=== PATIENT | male | born 1965 | race Caucasian/White ===

== ENCOUNTER 2023-03-13 02:29 | Emergency (ER) | payer OTHER, SELFPAY ==
[2023-03-13 02:37] VITALS: BP 105/76; BMI 42.5
[2023-03-13 02:45] VITALS: BP 105/76
[2023-03-13 02:48] LABS: % Basophils 0.3 % (0-2); % Eosinophils 2.5 % (0-6); % Immature Granulocytes 0.2 % (0-0.5); % Lymphocytes 23.8 % (20.5-51.1); % Monocytes 8.3 % (1.7-9.3); % Neutrophils 64.9 % (42.2-75.2); Absolute Eosinophils 0.2 10^3/uL (0-0.7); Absolute Lymphocytes 2.1 10^3/uL (1.2-3.4); Absolute Monocytes 0.7 10^3/uL (0.1-0.6); Absolute Neutrophils 5.8 10^3/uL (1.4-6.5); Hematocrit 44.7 % (39.0-52.0); Hemoglobin 15.1 g/dL (13.0-18.0); Mean Corp Hgb Conc. 33.8 g/dL (33.0-37.0); Mean Corpuscular Hgb 28.2 pg (27.0-31.0); Mean Corpuscular Volume 83.4 fL (80.0-94.0); Mean Platelet Volume 9.4 fL (7.4-10.4); Nucleated Red Blood Cells % 0 % (-); Platelet Count 244 10^3/uL (130-400); Red Blood Cell Count 5.36 10^6/uL (4.70-6.10); Red Cell Dist. Width 13.8 % (11.5-14.5); White Blood Cell Count 8.9 10^3/uL (4.8-10.8)
[2023-03-13 03:00] VITALS: BP 116/67
[2023-03-13 03:12] LABS: ALT (SGPT) 24 U/L (0-50); AST (SGOT) 26 U/L (17-59); Albumin 4.2 g/dl (3.5-5.0); Alkaline Phosphatase 88 U/L (38-126); Blood Urea Nitrogen 19 mg/dl (9-20); Calcium 9.3 mg/dl (8.4-10.2); Carbon Dioxide 29 mmol/L (22-30); Chloride 102 mmol/L (98-107); Estimated Creatinine Clearance 125 ml/min; Glucose 109 mg/dl (70-99); Potassium 4.2 mmol/L (3.5-5.1); Sodium 136 mmol/L (135-145); Total Bilirubin 0.6 mg/dl (0.2-1.3); Total Protein 7.5 g/dl (6.3-8.2); eGFR > 60.00
[2023-03-13 03:13] LABS: NT-proBNP 398 pg/ml; Troponin I < 0.012 ng/ml
[2023-03-13 04:02] LABS: Lipase 90 U/L (23-300)
[2023-03-13 04:05] VITALS: BP 130/80
--- NOTE | 2023-03-13 04:12 | ED.GENMED ---
History of Present Illness
<MARIBELL Yo - Last Filed: 03/13/23 06:29>
General
Chief Complaint: Chest Pain
Source: patient
Exam Limitations: none
Time Seen by Provider: 03/13/23 03:01
Nursing documentation reviewed up to this point in time: agreed with
Travel History
Have you had any contact with someone who has COVID-19?: No
Do you have any symptoms of coronavirus? Fever > 100 degrees, chills, cough, shortness of breath, sore throat, loss of taste or smell, muscle aches, or headache?: No
History of Present Illness
History of Present Illness:
Pt is a 57 yo male with PMH of GERD, T2DM, chronic afib, HIV who presents today with epigastric pain. Pt states that he was laying on his stomach watching TV at 1:30am when he suddenly developed 3-4/10 non-radiating pressure-like epigastric pain.
Pain did not change with position change and gets slightly worse with deep breaths. Pt states that this feels different than his GERD. Pt states that he has been 'very gassy recently' following meals, especially following restaurant meals. He also
has had diarrhea for about 1 week. Denies chest pain, SOB, leg pain, other abdominal pain, constipation, fever.
Past History
<MARIBELL Yo - Last Filed: 03/13/23 06:29>
Past History
ED Past Medical History: Arrthythmia (Atrial fib), GERD, HTN, Hypercholesterolemia, NIDDM, Psychiatric (anxiety,) and Other (Chronic back problems, HIV, kidney stones, hepatitis B, PNA,)
ED Past Surgical History: None
Social History
Tobacco: Non-smoker
Alcohol: Occasional
Drug: None
Personal: Single
Living: with roommate
Employment: Not employed
Family History
Family History: Other (Coronary artery disease, CVA, cancer)
Review of Systems
<MARIBELL Yo - Last Filed: 03/13/23 06:29>
Review of Systems
Allergies reviewed?: Yes
All Other Systems: ROS reviewed and negative except as documented in HPI and ROS
Phy Exam
<MARIBELL Yo - Last Filed: 03/13/23 06:29>
General Physical Exam
General Presentation: well appearing and no apparent distress
General Skin: warm and dry
General Mental: alert
General Hydration: appears well hydrated
ENT Exam
ENT Exam: pharynx normal, neck supple, normocephalic and swallowing well
Eye Exam
Eye Exam: PERRL and conjunctiva normal
Cardiovascular Exam
Cardiovascular Exam: no edema, normal peripheral pulses, irregularly irregular and systolic murmur
Pulmonary Exam
Pulmonary Exam: lungs clear, no respiratory distress, no rales, no crackles, no rhonchi, no wheezing and no cough
Gastrointestinal Exam
Gastrointestinal Exam: normal bowel sounds, non tender (no epigastric tenderness with palpation), soft and non distended
Neurological Exam
Neurological Exam: alert, oriented x3 and speech normal
Skin Exam
Skin Exam: normal color and warm/dry
Psychiatric Exam
Psychiatric Exam: normal mood/affect
Scores
<MARIBELL Yo - Last Filed: 03/13/23 06:29>
Heart Score for Chest Pain Patients
STEMI patient?: No
History: Slightly or Non-Suspicious
ECG: Normal
Age: >45 - <65 years
Risk Factors: >/= 3 Risk Factors or History of CAD
Troponin: </= Normal Limit
Heart Score for Chest Pain Patients: 3
Heart Score Risk: 2.5% MACE over next 6 weeks
Course
<MARIBELL Yo - Last Filed: 03/13/23 06:29>
Orders/Labs/Results
Orders:
Orders
03/13/23 02:35
Electrocardiogram (*1) Urgent
Reason for Study: Other
Other Reason for Exam: Respiratory Distress
Cardiac Monitoring- Treatment ONCE
EKG- Treatment ONCE
IV Insert/Care/Rem.- Treatment PRN
CR Chest - 2 Views Urgent
Comment:
Reason For Exam: respiratory distress
O2 Therapy [RESP] Urgent
Titrate/Wean O2 to maintain O2 sat greater than (%): 93
Special Instructions: TO MAINTAIN CONTINUOUS O2 SATS >/= 93%
Pulse Ox/cont/shift [RESP] Urgent
Quantity: 1
Special Instructions: continuous pulse ox
03/13/23 02:41
Complete Blood Count/With Diff Urgent
Comprehensive Metabolic Panel Urgent
Lipase Urgent
Comment: ADD ON
NT-proBNP Urgent
Troponin I Urgent
03/13/23 03:28
Add On- LAB Urgent
Tests Added?: lipase
03/13/23 04:34
Mag Hydrox/Al Hydrox/Simeth [Maalox] 30 ml Phenobarb/Hyoscy/Atropine/Scop [] 10 ml Viscous Lidocaine 2% [Xylocaine Viscous Cup] 10 ml PO NOW
03/13/23 04:37
Mag Hydrox/Al Hydrox/Simeth [Maalox] 30 ml .ROUTE .STK-MED ONE
Phenobarb/Hyoscy/Atropine/Scop [] 10 ml .ROUTE .STK-MED ONE
Viscous Lidocaine 2% [Xylocaine Viscous Cup] 15 ml .ROUTE .STK-MED ONE
03/13/23 04:42
Acetaminophen [Tylenol] 1,000 mg PO NOW STA
03/13/23 04:43
Troponin I Urgent
Acetaminophen [Tylenol] 1,000 mg .ROUTE .STK-MED ONE
Abnormal Lab Results
03/13/23
02:41
Absolute Monos (auto) 0.7 H 10^3/uL
(0.1-0.6)
Glucose 109 H mg/dl
(70-99)
03/13/23 02:41
03/13/23 02:41
Vital Signs
Initial and Last Documented VS:
Initial Vital Signs
Temp Pulse Resp BP Pulse Ox
98.1 F 85 20 105/76 95
03/13/23 02:37 03/13/23 02:37 03/13/23 02:37 03/13/23 02:37 03/13/23 02:37
Last Documented Vital Signs
Temp Pulse Resp BP Pulse Ox
98.1 F 87 20 109/74 97
03/13/23 02:37 03/13/23 05:45 03/13/23 05:45 03/13/23 05:00 03/13/23 05:45
<Francine Swan, DO - Last Filed: 03/13/23 05:58>
Orders/Labs/Results
Orders:
Orders
03/13/23 02:35
Electrocardiogram (*1) Urgent
Reason for Study: Other
Other Reason for Exam: Respiratory Distress
Cardiac Monitoring- Treatment ONCE
EKG- Treatment ONCE
IV Insert/Care/Rem.- Treatment PRN
CR Chest - 2 Views Urgent
Comment:
Reason For Exam: respiratory distress
O2 Therapy [RESP] Urgent
Titrate/Wean O2 to maintain O2 sat greater than (%): 93
Special Instructions: TO MAINTAIN CONTINUOUS O2 SATS >/= 93%
Pulse Ox/cont/shift [RESP] Urgent
Quantity: 1
Special Instructions: continuous pulse ox
03/13/23 02:41
Complete Blood Count/With Diff Urgent
Comprehensive Metabolic Panel Urgent
Lipase Urgent
Comment: ADD ON
NT-proBNP Urgent
Troponin I Urgent
03/13/23 03:28
Add On- LAB Urgent
Tests Added?: lipase
03/13/23 04:34
Mag Hydrox/Al Hydrox/Simeth [Maalox] 30 ml Phenobarb/Hyoscy/Atropine/Scop [] 10 ml Viscous Lidocaine 2% [Xylocaine Viscous Cup] 10 ml PO NOW
03/13/23 04:37
Mag Hydrox/Al Hydrox/Simeth [Maalox] 30 ml .ROUTE .STK-MED ONE
Phenobarb/Hyoscy/Atropine/Scop [] 10 ml .ROUTE .STK-MED ONE
Viscous Lidocaine 2% [Xylocaine Viscous Cup] 15 ml .ROUTE .STK-MED ONE
03/13/23 04:42
Acetaminophen [Tylenol] 1,000 mg PO NOW STA
03/13/23 04:43
Troponin I Urgent
Acetaminophen [Tylenol] 1,000 mg .ROUTE .STK-MED ONE
Abnormal Lab Results
03/13/23
02:41
Absolute Monos (auto) 0.7 H 10^3/uL
(0.1-0.6)
Glucose 109 H mg/dl
(70-99)
03/13/23 02:41
03/13/23 02:41
Vital Signs
Initial and Last Documented VS:
Initial Vital Signs
Temp Pulse Resp BP Pulse Ox
98.1 F 85 20 105/76 95
03/13/23 02:37 03/13/23 02:37 03/13/23 02:37 03/13/23 02:37 03/13/23 02:37
Last Documented Vital Signs
Temp Pulse Resp BP Pulse Ox
98.1 F 87 20 109/74 97
03/13/23 02:37 03/13/23 05:45 03/13/23 05:45 03/13/23 05:00 03/13/23 05:45
<MARIBELL Yo - Last Filed: 03/13/23 06:29>
*Critical Care Note
Total Time (30-74mins, 75-104mins- exclusive of procedures): Not Applicable
ED Attending Note
<MARIBELL Yo - Last Filed: 03/13/23 06:29>
-
Portions of this chart may have been created with voice recognition software.� Occasional wrong word or��sound alike� substitutions may have occurred due to the inherent limitations of voice recognition software.
<Francine Swan DO - Last Filed: 03/13/23 05:58>
ED Attending Note
Patient seen and examined by attending physician: Yes
I performed the substantive portion of visit, reviewed & personally made and approve the management plan that is documented in note by myself or GURWIDNER.: Yes
I performed a history and physical exam of patient and discussed management with resident, I reviewed resident's note and agree with documented findings and plan of care.: Yes
ED Attending Note:
This is a 57-year-old morbidly obese gentleman who has history of chronic A-fib, maintained on Eliquis, history of hypertension, insulin requiring diabetes, hyperlipidemia, chronic low back pain, HIV, GERD who presents with epigastric abdominal pain
that began around 130 this morning while lying prone, watching TV. Epigastric pain seemed mildly worse with deep inspiration but no other associated symptoms. No radiation of the pain, no nausea nor vomiting, no back pain no neck pain, no
dizziness nor lightheadedness, no palpitations, no diaphoresis. He has had a few loose stools over the past few days which is not unusual for him. He denies hematochezia. He has not had a fever nor chills. No dysuria no urgency or hematuria. He
has not taken anything for discomfort. No prior history of coronary artery disease. No recent change in medication.
57-year-old obese gentleman appears his stated age, awake and alert, pleasant, quite chatty and overall appears in no acute distress.
HEENT: Face mask in place. Anicteric.
Neck is supple, nontender, no adenopathy nor JVD.
Heart is irregularly irregular at a rate of 80-90. No murmur no rub.
Lungs are clear to auscultation, respirations are easy and nonlabored.
Abdomen is obese, soft, nondistended, no appreciable tenderness. No rebound or guarding. No CVA tenderness. Normoactive bowel sounds. No palpable masses.
Extremities without clubbing or cyanosis nor edema. Peripheral pulses are full and equal. Nontender.
Skin is warm and dry, normal color. Good turgor. No rash.
Neuro: Awake alert and oriented x 3. No focal neurodeficits. Gait is steady.
Concern for acute gastritis, GERD, other consideration is ACS, musculoskeletal pain, pancreatitis, biliary colic.
Overall pain appears mild, improving.
EKG shows atrial fibrillation with controlled ventricular response. No acute ST-T wave abnormalities, similar and unchanged from previous EKG July 2021.
Will check labs including troponin, lipase.
Will consider GI cocktail if labs are unremarkable.
03/13/2023 0448 AM
Thus far labs are unremarkable. LFTs, lipase all within normal limits. Troponin is negative. Random glucose 109. CBC is unremarkable. GI cocktail ordered but patient is currently pain-free and comfortable.
He does note very mild headache and requested dose of Tylenol which will be given now.
Will recheck troponin. 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
Discharge Plan
Departure
Patient Disposition: Home (Routine Discharge)
Date of Disposition: 03/13/23
Time of Disposition: 05:57
Patient with high blood pressure during this ER visit?: No
Condition: Good
Discharge Problem:
Abdominal pain, acute, epigastric
Instructions: Acid Reflux and GERD in Adults (DC)
Prescriptions:
No Action
amlodipine-olmesartan [Tanna] 1 TAB tablet
1 tab PO DAILY
metformin 500 MG tablet
1,000 mg PO BID
dexlansoprazole [Dexilant] 60 MG capsule,biphase delayed releas
60 mg PO DAILY
lovastatin 40 MG tablet
40 mg PO DAILY
Patient Comments:
takes it as needed
fenofibrate micronized 130 MG capsule
134 mg PO DAILY PRN (Reason: per pt )
utolgqd-hpx-eflws-tenof alafen [Genvoya] 1 TABLET tablet
1 tab PO DAILY
insulin aspart U-100 [Novolog FlexPen U-100 Insulin] 300 UNITS/3 ML insulin pen
27 units SC AC
insulin detemir U-100 [Levemir FlexTouch U100 Insulin] 300 UNIT/3 ML insulin pen
50 unit SC HS
Patient Comments:
takes it @ b/n [id number] as pt awakes most of the night
metoprolol tartrate 50 MG tablet
100 mg PO BID Qty: 120 0RF
aspirin [Aspir-Low] 81 MG tablet,delayed release (DR/EC)
81 mg PO DAILY Qty: 30 0RF
lorazepam 0.5 MG tablet
0.5 mg PO Q4HPRN PRN (Reason: anxiety) Qty: 10 0RF
gabapentin 100 MG capsule
100 mg PO QID
Referrals:
Devin Cronin MD [Active] - Call in 1-3 days for appt
Roberto Sanders DO [Family Provider] - Call in 1-3 days for appt
Interventions
Interventions:
*Risk Screen - Suicide Last Done: 03/13/23 02:37
*General Assessment Last Done: 03/13/23 02:37
*Neglect/Abuse Screening Last Done: 03/13/23 02:37
*ED COVID-19 Vaccine History Last Done: 03/13/23 02:37
*Nursing Disposition Last Done: 03/13/23 06:15
ED- Cardiac Assessment Last Done: 03/13/23 02:44
Discharge Date and Time
Discharge Date/Time: 03/13/23 06:15
[2023-03-13] MEDS: TYLENOL 1000 MG PO (04:44)
[2023-03-13 05:00] VITALS: BP 109/74
[2023-03-13 05:19] LABS: Troponin I < 0.012 ng/ml
== END 2023-03-13 06:15 | disposition home or self-care (01) ==
LOC: EMR 02:29
PROVIDERS: EMERGENCY PHYSICIAN Emergency Medicine; FAMILY PHYSICIAN Family Medicine
DX: R10.13 Epigastric pain (principal); I10 Essential (primary) hypertension; I48.20 Chronic atrial fibrillation, unspecified; E11.9 Type 2 diabetes mellitus without complications; E78.00 Pure hypercholesterolemia, unspecified; Z21 Asymptomatic human immunodeficiency virus [HIV] infection status; K21.9 Gastro-esophageal reflux disease without esophagitis
CPT/HCPCS: 99285; 71046; 80053; 83690; 83880; 84484; 85025; 93005

== ENCOUNTER → 2023-05-18 12:22 | Outpatient (REF) | payer OTHER, SELFPAY | LOC: RCS 12:22 | PROVIDERS: ATTENDING PHYSICIAN Internal Medicine; FAMILY PHYSICIAN Family Medicine | DX: I48.21 Permanent atrial fibrillation (principal); I35.0 Nonrheumatic aortic (valve) stenosis; I42.8 Other cardiomyopathies | CPT/HCPCS: 93306 ==

== ENCOUNTER → 2023-07-31 16:55 | Outpatient (REF) | payer OTHER, SELFPAY | LOC: RAD 16:55 | PROVIDERS: ATTENDING PHYSICIAN Physician Assistant Medical | DX: M54.2 Cervicalgia (principal) | CPT/HCPCS: 72052 ==

== ENCOUNTER → 2024-01-01 12:45 | Outpatient (REF) | payer OTHER, SELFPAY | LOC: RAD 12:45 | PROVIDERS: ATTENDING PHYSICIAN Specialist; FAMILY PHYSICIAN Family Medicine | DX: B18.1 Chronic viral hepatitis B without delta-agent (principal) | CPT/HCPCS: 76700 ==

== ENCOUNTER 2024-01-29 06:27 | Day surgery (SDC) | payer OTHER, SELFPAY ==
[2024-01-29] VITALS (12 sets, daily range): BP systolic 120–134; BP diastolic 79–91; BMI 44.2
[2024-01-29] MEDS: LOW STRENGTH ASPIRIN 81 MG PO (08:14)
[2024-01-29 09:08] LABS: Glucose - Point of Care 100 mg/dl (70-99)
--- NOTE | 2024-01-29 10:59 | ITS.CL.CATH ---
Insurance Verification Representative - Catheterization
Cardiac Catheterization
Procedure Report:
CARDIAC CATHETERIZATION REPORT
Date of Procedure: 01/29/2024
Referring: Devin Cronin M.D., Ph.D.
Indication: Atypical chest discomfort, known aortic valve stenosis.
PROCEDURE:
1. Right heart catheterization.
2. Left heart catheterization.
3. Coronary angiography.
4. Aortic valve interrogation.
5. Mitral valve interrogation.
ACCESS:
6 [place] right radial artery.
5 [place] right antecubital vein using a modified Seldinger technique under ultrasound guidance.
CATHETERS:
1. 5 [place] balloon wedge.
2. 5 [place] JL 4.
3. 5 [place] JR4.
4. 6 [place] dual-lumen pigtail.
HEMODYNAMIC DATA
Weight (kg): 147.6
AO (s/d/x mmHg): 97/69/80
LV (s/x mmHg): 173/24
PCWP (a/v/x mmHg): 26/33/24
PA (s/d/x mmHg): 43/24/30
RV (s/x mmHg): 43/16
RA (a/v/x mmHg): 18//17
SVC SvO2 (%): 73.1
PA SvO2 (%): 71.6
SaO2 (%): 93.2
Hbg (g/dL): 14.1
CO (L/min): 7.68
CI (L/min/m2): 2.93
TPG (mmHg): 6
PVR (Siddiqui Units): 0.78
SVR (dynes*seconds*cm^-5): 656
AVO2 Diff (Volume %): 4.14
AV gradient (x, mmHg): 58.3
AV area (cm2): 0.90
MV gradient (x, mmHg): 1.7
MV area (cm2): >5.0
LEFT VENTRICULOGRAPHY: Not performed.
CORONARY ANGIOGRAPHY
Dominance: Right.
Left Main: Normal size, bifurcating vessel. There is no coronary artery disease.
LAD: Normal size vessel giving rise to 2 diagonals. The first diagonal arises very high off of the LAD. There is no coronary artery disease.
Ramus: Not performed.
Circumflex: Large size, nondominant vessel giving rise to 2 obtuse marginals then terminating as a third obtuse marginal. There is no coronary artery disease.
RCA: Normal size, dominant vessel. There is no coronary artery disease.
INTERVENTIONS
None.
Closure Device: Vascular band for the right radial artery, manual pressure for the right antecubital vein.
Radiation dose (mGy): 1017.81
DAP (cm2.Gy): 81.7884
Fluoroscopy time (minutes): 9.5
Sedation time (minutes): 64
CONCLUSIONS:
1. Right dominant circulation with no significant coronary artery disease.
2. Severe to critical aortic valve stenosis (mean gradient = 50.3 mmHg, MARIYA = 0.90 cm�).
3. Severely elevated filling pressures (LVEDP = 24 mmHg, PCWP = 24 mmHg at 147.6 kg).
4. Mild, postcapillary pulmonary hypertension (PA = 43/24/30 mmHg, PCWP = 24 mmHg, cardiac output = 7.68 L/min, PVR = 0.78 Siddiqui units).
RECOMMENDATIONS:
1. Expectant management after cardiac catheterization via right radial/antecubital approach.
2. Limited weight bearing on the right wrist for one week.
3. Consultation with CT surgery regarding optimal valve replacement strategy.
4. Start furosemide 40 mg p.o. daily. BMP in 1 week to monitor renal function and potassium levels.
5. Repeat transthoracic echo.
6. Stable for outpatient follow-up.
Copy to: Devin Cronin M.D., Ph.D., Roberto Sanders, D.O.
Afshin Forman DO, FACC, FACP
[2024-01-29] MEDS: NSS 663 IV (11:36)
[2024-01-29] MEDS: TOPROL XL 100 MG PO (11:40)
== END 2024-01-29 13:33 | disposition home or self-care (01) ==
LOC: CATH 06:27
PROVIDERS: ATTENDING PHYSICIAN Internal Medicine Cardiovascular Disease; CONSULT PHYSICIAN Thoracic Surgery (Cardiothoracic Vascular Surgery); FAMILY PHYSICIAN Family Medicine; OTHER PHYSICIAN Internal Medicine
DX: I35.0 Nonrheumatic aortic (valve) stenosis (principal); R07.89 Other chest pain; I27.29 Other secondary pulmonary hypertension; Z79.01 Long term (current) use of anticoagulants; Z79.899 Other long term (current) drug therapy; Z79.84 Long term (current) use of oral hypoglycemic drugs; Z79.4 Long term (current) use of insulin
CPT/HCPCS: 82962; 93460; C1769; C1894; Q9967

== ENCOUNTER → 2024-02-26 14:31 | Outpatient (REF) | payer OTHER, SELFPAY | LOC: HWRCS 14:31 | PROVIDERS: ATTENDING PHYSICIAN Thoracic Surgery (Cardiothoracic Vascular Surgery) | DX: Z01.818 Encounter for other preprocedural examination (principal) | CPT/HCPCS: 93306 ==

== ENCOUNTER 2024-05-26 05:21 | Emergency (ER) | payer OTHER, SELFPAY ==
[2024-05-26 05:23] VITALS: BP 160/84
--- NOTE | 2024-05-26 06:41 | ED.GENMED ---
History of Present Illness
General
Chief Complaint: Blood Pressure Problem
Source: patient
Exam Limitations: none
Time Seen by Provider: 05/26/24 06:24
History of Present Illness
History of Present Illness:
58yoM with a history of hypertension, hyperlipidemia, type 2 diabetes, atrial fibrillation, and HIV presenting for concern for low blood pressure. Patient takes amlodipine-olmesartan combination pill daily for his blood pressure, he is unsure of
the dose. Patient typically takes his medications at 10 AM in the morning. He took yesterday's dose 12 hours early and took at 10 PM the night prior. He called his PCPs office and he was told to skip the rest of the day and resume his medications
this morning. Patient woke up this morning and 'felt funny.' He took his morning dose of the amlodipine-olmesartan around 4:45am. He decided to check his blood pressure which was 115/57. He became concerned that his blood pressure was too low so
decided to come to the ED. He is currently asymptomatic at this time.
Past History
Past History
ED Past Medical History: Arrthythmia (Atrial fib), GERD, HTN, Hypercholesterolemia, NIDDM, Psychiatric (anxiety,) and Other (Chronic back problems, HIV, kidney stones, hepatitis B, PNA,)
ED Past Surgical History: None
Social History
Tobacco: Non-smoker
Alcohol: Occasional
Drug: None
Personal: Single
Living: with roommate
Employment: Not employed
Family History
Family History: Other (Coronary artery disease, CVA, cancer)
Phy Exam
General Physical Exam
General Presentation: well appearing and no apparent distress
General age: appears stated age
General Skin: warm and dry
General Habitus: normal
General Mental: alert
ENT Exam
ENT Exam: normocephalic
Pulmonary Exam
Pulmonary Exam: no respiratory distress
Neurological Exam
Neurological Exam: alert
[place] Coma Scale
Eye Opening: Spontaneous
Verbal Response: Oriented
Motor Response: Obeys Commands
GCS Total Score: 15
Skin Exam
Skin Exam: normal color and warm/dry
Psychiatric Exam
Psychiatric Exam: normal mood/affect
Course
Vital Signs
Blood pressure: 116/76
Initial and Last Documented VS:
Initial Vital Signs
Temp Pulse Resp BP Pulse Ox
97.5 F 78 18 160/84 98
05/26/24 05:23 05/26/24 05:23 05/26/24 05:23 05/26/24 05:23 05/26/24 05:23
Last Documented Vital Signs
Temp Pulse Resp BP Pulse Ox
97.5 F 78 18 116/76 98
05/26/24 05:23 05/26/24 05:23 05/26/24 05:23 05/26/24 06:50 05/26/24 05:23
MDM/Problems Addressed
Differential Diagnosis Includes:
58yoM here with concern for low blood pressure. Took yesterday's dose of amlodipine-olmesartan 12 hours early. Took dose this morning at 4:45am instead of 10am. Alpha 'funny' and BP was 115/54 at home. Currently asymptomatic. BP 160/84 in triage.
Repeat BP 116/76 during initial exam. Patient is well appearing in no distress and is mentating appropriately.
No indication for workup at this time. Patient provided with reassurance. He was advised to resume his blood pressure medications tomorrow as prescribed by his PCP. Advised f/u with PCP and ED return precautions reviewed. Patient in agreement with
plan and was discharged in stable condition.
*Critical Care Note
Total Time (30-74mins, 75-104mins- exclusive of procedures): Not Applicable
ED Attending Note
-
Portions of this chart may have been created with voice recognition software.� Occasional wrong word or��sound alike� substitutions may have occurred due to the inherent limitations of voice recognition software.
Discharge Plan
Departure
Patient Disposition: Home (Routine Discharge)
Date of Disposition: 05/26/24
Time of Disposition: 06:50
Patient with high blood pressure during this ER visit?: No
Discharge Problem:
Blood pressure check
Instructions: High Blood Pressure (DC)
Prescriptions:
No Action
amlodipine-olmesartan [Tanna] 1 TAB tablet
1 tab PO DAILY
dexlansoprazole [Dexilant] 60 MG capsule,biphase delayed releas
60 mg PO PRN PRN (Reason: heartburn)
insulin aspart U-100 [Novolog FlexPen U-100 Insulin] 300 UNITS/3 ML insulin pen
22 units SC AC
lorazepam 0.5 MG tablet
0.5 mg PO Q4HPRN PRN (Reason: anxiety) Qty: 10 0RF
metoprolol succinate 100 mg Tablet Extended Release 24 Hr
100 mg PO DAILY
insulin glargine [Lantus Solostar U-100 Insulin] 100 unit/mL (3 mL) Insulin Pen
54 unit SC DAILY
Eliquis 5 mg Tablet
5 mg PO BID
Biktarvy 50-200-25 mg Tablet
1 tab PO DAILY
Nexlizet 180-10 mg Tablet
1 tab PO DAILY
Mounjaro 12.5 mg/0.5 mL Pen Injector
12.5 mg SC QWEEK
doxycycline hyclate 100 mg Capsule
200 mg PO PRN PRN (Reason: unprotected sexual intercourse)
lidocaine [Lidocaine Pain Relief] 4 % Adhesive Patch,Medicated
1 patch TOPICAL BID PRN (Reason: pain)
acetaminophen [Tylenol Arthritis Pain] 650 mg Tablet Extended Release
650 mg PO Q8H PRN (Reason: pain)
oxycodone-acetaminophen [Percocet] 5-325 mg Tablet
1 tab PO PRN PRN (Reason: pain)
ascorbic acid (vitamin C) [Vitamin C] 500 mg Tablet
500 mg PO DAILY
vitamin A 10,000 unit Tablet
10,000 unit PO DAILY
ergocalciferol (vitamin D2) 1,000 unit Capsule
1,000 unit PO DAILY
Referrals:
UNKNOWN - PT DOES,NOT KNOW [Unknown Provider] -
Activity Restrictions/Additional Instructions:
Resume your home blood pressure medications tomorrow as prescribed by your family doctor.
Please schedule a follow-up with your PCP for a blood pressure recheck. Return to the ER with any new or worsening symptoms.
Interventions
Interventions:
*Risk Screen - Suicide Last Done: 05/26/24 05:23
*Neglect/Abuse Screening Last Done: 05/26/24 05:23
Discharge Date and Time
Print Language: BELARUSIAN
[2024-05-26 07:17] VITALS: BMI 42.4
[2024-05-26 07:18] VITALS: BP 124/92
== END 2024-05-26 07:25 | disposition home or self-care (01) ==
LOC: EMR 05:21
PROVIDERS: EMERGENCY PHYSICIAN Emergency Medicine; FAMILY PHYSICIAN Family Medicine
DX: I10 Essential (primary) hypertension (principal); E78.00 Pure hypercholesterolemia, unspecified; E11.9 Type 2 diabetes mellitus without complications; I48.91 Unspecified atrial fibrillation; F41.9 Anxiety disorder, unspecified; Z21 Asymptomatic human immunodeficiency virus [HIV] infection status; K21.9 Gastro-esophageal reflux disease without esophagitis; Z87.442 Personal history of urinary calculi; Z79.899 Other long term (current) drug therapy; Z88.2 Allergy status to sulfonamides
CPT/HCPCS: 99282

== ENCOUNTER → 2024-06-06 12:17 | Outpatient (REF) | payer OTHER, SELFPAY | LOC: HWRAD 12:17 | PROVIDERS: ATTENDING PHYSICIAN Nurse Practitioner Gerontology; FAMILY PHYSICIAN Family Medicine | DX: R22.1 Localized swelling, mass and lump, neck (principal) | CPT/HCPCS: 76536 ==

== ENCOUNTER → 2024-07-03 09:28 | Outpatient (REF) | payer OTHER, SELFPAY | LOC: RAD 09:28 | PROVIDERS: ATTENDING PHYSICIAN Thoracic Surgery (Cardiothoracic Vascular Surgery); FAMILY PHYSICIAN Family Medicine | DX: I35.0 Nonrheumatic aortic (valve) stenosis (principal) | CPT/HCPCS: 74174; 75572; Q9967 ==

== ENCOUNTER 2024-08-22 07:32 | Inpatient (IN) | payer OTHER, SELFPAY ==
[2024-08-12 12:32] VITALS: BMI 42.8
[2024-08-12 13:11] LABS: Hematocrit 40.9 % (39.0-52.0); Hemoglobin 14.3 g/dL (13.0-18.0); Mean Corp Hgb Conc. 35.0 g/dL (33.0-37.0); Mean Corpuscular Volume 82.1 fL (80.0-94.0); Nucleated Red Blood Cells % 0 % (-); Platelet Count 230 10^3/uL (130-400); Red Cell Dist. Width 13.6 % (11.5-14.5)
[2024-08-12 13:23] LABS: INR 1.13; PT 14.8 Sec (11.4-14.6)
[2024-08-12 13:29] LABS: Urine Character Clear (Clear)
[2024-08-12 13:40] LABS: Urine Red Blood Cell 0-2 /HPF (0-2); Urine Squamous Cell 0-2 /LPF (Few); Urine White Cell 0-2 /HPF (0-5)
[2024-08-12 14:15] LABS: Glycohemoglobin (HgbA1c) 6.1 % (4.0-5.6)
--- NOTE | 2024-08-12 14:35 | CM ---
Met with Mr. Velazquez in [facility]'s. He states prior to admission he resides alone in an third floor apartment. He states he has elevator access to get his apartment. He states prior to admission he was independent with ambulation and adls. He
states he does not have any DME in the home. He states he has a prescription plan. The discharge plan is to return home with a home visit by the Transitional Care Nurse when medically stable.
We reviewed pre-op and post-op routines. We reviewed the shower instructions. He has the soap, written instructions and the TAVR Instructions. We also reviewed restrictions including driving and lifting restrictions. We discussed a home visit by
the Transitional Care Nurse. He is agreeable to a home visit. The plan is for TAVR on August.
[2024-08-12 15:02] LABS: ALT (SGPT) 17 U/L (0-50); AST (SGOT) 20 U/L (17-59); Albumin 4.4 g/dl (3.5-5.0); Alkaline Phosphatase 60 U/L (38-126); Blood Urea Nitrogen 24 mg/dl (9-20); Calcium 9.2 mg/dl (8.4-10.2); Carbon Dioxide 24 mmol/L (22-30); Chloride 106 mmol/L (98-107); Estimated Creatinine Clearance 122 ml/min; Glucose 127 mg/dl (70-99); Potassium 4.7 mmol/L (3.5-5.1); Sodium 140 mmol/L (135-145); Total Protein 7.5 g/dl (6.3-8.2); eGFR > 60.00
--- NOTE | 2024-08-12 15:29 | HP.FOC2 ---
Focused History & Physical
Chief Complaint
HPI:
Chief Complaint: CASTRO/ Fatigue
HPI / Indication for Planned Procedure: TF tAVR
Relevant Past Medical History: Diabetes and Other (Severe , afib, HIV, HEP B carrier, MRSA, early latent syphilis, NICM)
Relevant Social History: Negative
Relevant Family History: Positive for (CAD, DM, stroke)
Relevant Past Surgical History: Negative
Review of Systems
Review of Pertinent Systems: All Systems Negative Except for the Following Positives (CASTRO, fatigue)
Medication
See Medication form for detailed medications: Yes
Medication List (including Herbals & OTC):
amlodipine 5 mg-olmesartan 40 mg tablet (Tanna) 1 tab PO DAILY 03/20/09
dexlansoprazole 60 mg capsule,biphase delayed release (Dexilant) 60 mg PO PRN PRN heartburn 10/04/11
insulin aspart U-100 100 unit/mL (3 mL) subcutaneous pen (Novolog FlexPen U-100 Insulin aspart) 22 units SC AC 01/30/17
acetaminophen 650 mg tablet,extended release (Tylenol Arthritis Pain) 650 mg PO Q8H PRN pain 01/29/24
apixaban 5 mg tablet (Eliquis) 5 mg PO BID 01/29/24
bempedoic acid 180 mg-ezetimibe 10 mg tablet (Nexlizet) 1 tab PO DAILY 01/29/24
insulin glargine 100 unit/mL (3 mL) subcutaneous pen (Lantus Solostar U-100 Insulin) 54 unit SC DAILY 01/29/24
lidocaine 4 % topical patch (Lidocaine Pain Relief) 1 patch topical BID PRN pain 01/29/24
metoprolol succinate 100 mg tablet,extended release 24 hr 100 mg PO BID 01/29/24
tirzepatide 12.5 mg/0.5 mL subcutaneous pen injector (Mounjaro) 12.5 mg SC QWEEK 01/29/24
[place] Muscle Support 1 tab PO QID 08/07/24
doravirine 100 mg-lamivudine 300 mg-tenofovir disoproxil 300 mg tablet (Delstrigo) 1 tab PO DAILY 08/07/24
Medications Reviewed: Yes
Allergies and Reactions
Patient has Allergies: Yes
Noted Allergies and Reactions:
Allergy/AdvReac Type Severity Reaction Status Date / Time
Sulfa (Sulfonamide Allergy ITCHY Verified 05/26/24 05:27
Antibiotics)
Pertinent Physical Exam
All Other Systems: Negative
Head/Neck: Normal
Lungs: Normal
Heart: Other (IV/ ZION)
Abdomen: Normal
Extremities: Normal
Neurological: Normal
Diagnosis / Assessment
Aortic stenosis
TF TAVR planned for 08/22/20[address] Forman and Inna utilizing a 29mm Monge S3 resilia
Hold Eliquis x 48 hours (last dose 08/19) Aspirin while Eliquis held (325mg 08/20) (81 mg 08/19 and 08/22). D/c aspirin once Eliquis is resumed
POD #1/#30 Echocardiogram
Cardiac rehab consult
T/c consumer educator consult during admission
Plan / Procedure
TF TAVR
Anesthesia/Sedation to be done by Anesthesia Provider: Yes
[2024-08-22] VITALS (27 sets, daily range): BP systolic 94–133; BP diastolic 61–99; BMI 44.5; BMI 45.0
[2024-08-22] MEDS: LOW STRENGTH ASPIRIN 81 MG PO (07:45)
--- NOTE | 2024-08-22 08:30 | CHAP ---
Emotional and spiritual support provided for Fiordaliza Moncadaeugenia who requested prayer prior to TAVR procedure. Will follow as able.
[2024-08-22 08:31] LABS: Glucose - Point of Care 126 mg/dl (70-99)
[2024-08-22] MEDS: VANCOCIN 530 MG IV (08:50)
--- NOTE | 2024-08-22 09:01 | W.CVOR.SURPR ---
CVOR Surgeon Immed Pre Op
-
I have examined this patient prior to performance of the scheduled procedure.
The patient's condition is unchanged from the time of the dictated/written History and
Physical and the patient is able to undergo the scheduled procedure.
Pt seen preop by Dr. Forman and also consented by him at that time.
--- NOTE | 2024-08-22 11:24 | CM ---
Chart reviewed. Patient is in the OR today. Patient is independent of ADLS, lives alone in a 3rd floor apartment, elevator access, 0 DME. Plan is for the patient to return home with CT Transitional RN. CM to follow
[2024-08-22 11:39] LABS: ACT-LR - POC 302 Seconds (116-155)
[2024-08-22] MEDS: ANCEF 10 IV (11:50)
--- NOTE | 2024-08-22 11:58 | ITS.CL.TAVR ---
Nitroglycerin Distributor - TAVR Report
TAVR PRocedure
Procedure Report:
TRANSCATHETER AORTIC VALVE REPLACEMENT REPORT
Date: 08/22/2024
Referring physician: Devin Cronin M.D., Ph.D.
Preop diagnosis: Severe aortic valve stenosis.
Postop diagnosis: Severe aortic valve stenosis, acute on chronic heart failure with preserved ejection fraction.
Procedure: Aortic balloon valvuloplasty using a #25 Josefina valvoplasty balloon, Transcatheter aortic valve replacement (TAVR) using a #26 Monge JANICE S3 Resilia THV.
Operators: Afshin Forman DO, Uzair Keith M.D.
Findings: Severely calcified and stenotic aortic valve.
Anesthesia: Conscious sedation was provided by the anesthesia staff.
Estimated blood loss: Negligible.
Complications: None.
Condition: Stable
Procedure:
The patient was brought to the cardiac rd lab technician after consent and was prepped and draped in standard sterile fashion. Conscious sedation was provided by the anesthesia staff. After a 'Time Out,' bilateral common femoral arteries and the left
common vein were access using a modified Seldinger technique with a micropuncture kit under ultrasound guidance. A 6 Congolese sheath was placed in the left femoral vein. Angiography performed through the micropuncture sheath confirmed satisfactory
arterial placement in the left common femoral artery. The micropuncture sheath was replaced with a 6Fr sheath in the left CRUSHER OPERATOR. Angiography through the micropuncture kit confirmed satisfactory arterial placement in the right common femoral artery.
The right CRUSHER OPERATOR was dilated with an 8FR dilator and preclosed with two Perc-Close devices. An 8Fr sheath was placed in the RCFA. Do to difficulty advancing the pacemaker, the initial 6Fr venous sheath was exchanged for a 6Fr Bright Tip sheath. The
temporary pacing wire was advanced through the left femoral vein and into the right ventricle, with some difficulty. The pacemaker demonstrated good capture and was set to back up. A 5Fr pigtail catheter was advanced through the left femoral
sheath and seated in the right coronary cusp. Angiography confirmed co-planar angles.
An AL-1 catheter was advanced through the 8Fr sheath, the J wire was exchanged for an Amplatz Extra-Stiff wire and the catheter and the 8 Fr sheath was removed. A 16 Fr dilator was advanced over the Extra-Stiff wire to the descending aorta. The
dilator was removed. The 16 Fr Monge E-Sheath was inserted over the wire and into the descending aorta. Heparin 12,000 units was given. The JANICE S3 was prepared on the back table. Orientation was confirmed by both physicians. The AL-1
catheter was re-advanced through the E-sheath to the level of the ascending aorta. The Extra-Stiff wire was removed and a soft tip straight wire was advanced through the AL-1. The straight tip wire was used to cross the aortic valve and the
catheter was advanced into the left ventricle. The straight wire was removed. Left ventricular pressure was measured. An Amplatz Extra-Stiff wire with curved proximal end was advanced through the catheter and into the left ventricular apex. The
catheter was removed. ACT was checked and confirmed to be > 250 seconds.
A #25 Josefina valvuloplasty balloon was advanced over the Extra-stiff wire and into the aortic annulus. Valvuloplasty was performed under rapid pacing with good balloon expansion. The valvuloplasty balloon was removed.
The valve was advanced over the Extrastiff wire and into the descending aorta. The balloon was pulled back and the valve was mounted on the balloon. The valve was advanced through the aortic arch and into the aortic valve annulus. The pusher
device was withdrawn to allow for balloon expansion. Low volume aortography confirmed good position of the valve. The valve was deployed during rapid ventricular pacing. Echocardiography and aortography confirmed a good result with no aortic valve
insufficiency and an 8 mmHg mean gradient. The valve deployment system was removed. The Monge E-Sheath was then removed and hemostasis obtained with the two Perc-Close sutures. A 6 Congolese Angio-Seal was placed for additional hemostasis. Final
angiography demonstrated no evidence of ileofemoral dissection/perforation and good runoff below the common femoral artery. The pacemaker and the pigtail catheter were removed. The left femoral artery sheath was removed using a 6 Congolese Angio-Seal.
The left femoral venous sheath was removed and manual pressure was applied with excellent hemostasis. Protamine 60 mg was administered.
Radiation
Dose (mGy): 796
DAP (cm2.Gy): 96.5
Fluoroscopy time (minutes): 18.8
TAVR Echo Gradient (mmHg): 8
LV (s/x, mmHg): 138/26 (A wave to 37)
TAVR Cath Gradient (mmHg): Not obtained.
Conclusions:
1. Successful placement of #26 Janice S3 Ultra aortic valve via right transfemoral approach with no acute complications.
2. Acute on chronic heart failure with elevated filling pressures (LVEDP = 26 at 146.5 kg).
Afshin Forman DO, FACC, FACP
Copy to: Uzair Keith M.D., Devin Cronin M.D., Ph.D., Dinora Shanks M.D.
--- NOTE | 2024-08-22 11:58 | W.PN.CT.SURG ---
CT Surgery Operative Note
-
OPERATIVE REPORT
Preoperative Diagnosis: Severe aortic valve stenosis, symptomatic
Postoperative Diagnosis: Same
Procedure(s) Performed: Right trans femoral TAVR with a 26 mm nominal Monge TAVR valve with balloon valvuloplasty
Date of Procedure: 08/22/2024
Comorbidities:
1. Severe aortic stenosis, symptomatic
2. Hypertension
3. Diabetes
4. Morbidly obese with a BMI of 44
5. Atrial fibrillation
6. HIV and syphilis
7. Hep B
Cardiac Surgeon: Uzair Keith MD, MS
[employer]: Afshin Forman MD
Anesthesia: Conscious Sedation and Local Analgesia
EBL: 150cc
Products: none
Implant: 26 mm Monge MIKE TAVR valve, SN: [id number]
Indication(s) for Procedures: 58-year-old male with symptomatic severe aortic stenosis. He was discussed in a multidisciplinary team setting however he has severe anxiety and adamantly refused elective open heart surgery. With his body habitus,
multidisciplinary team consensus cannulating occlusion that it was reasonable to offer transcatheter intervention. CT-TAVR protocol revealed acceptable anatomy for TAVR access and implantation.
Start time: 1029hrs
Deployment time: 1137hrs
End time: 1149hrs
Radiation Dose (mGy): 796
DAP (cm2.Gy): 96.5
Fluoroscopy time (minutes): 18.8
Contrast volume (ml): 125
TAVR gradient (mmHg): 8mmHg
Heparin Dose: [id number]
Protamine Dose: 60mg
Final Valve Positionin/10
Findings: Preoperative LVEF was 60% and was 60% following TAVR without inotropic support. Function was overall normal without regional wall motion abnormalities or dyskinesia. The aortic valve was well seated without detectable PVL and mean gradient
across the new valve was 8mmHg. After deployment the valve, and return of vital signs he returned to sinus while on the laborer wood preserving plant table. There was successful placement of 26 mm nominal TAVR valve without acute complications. We did initially sized
him with a 25 mm balloon and then during the inflation we injected contrast via an aortogram and found no significant leakage around the balloon. His LVEDP was found to be approximately 30 mmHg indicating acute on chronic congestive heart failure
with significant volume overload. Additionally he required LMA intubation during the procedure as he had significantly elevated CO2's and poor oxygenation likely secondary to his body habitus and STEWART. Of note, given his body habitus there was some
difficulty with access requiring multiple attempts with micropuncture.
Access:
1. Device -right common femoral artery, perclose x 2 [+ 6Fr angioseal]
2. Pigtail -left common femoral artery [+ 6Fr angioseal]
3. Transvenous Pacer -left common femoral vein
Description of Procedure: The patient was taken to the laborer wood preserving plant. Their identity and procedure to be performed were verified and they were positioned supine on the laborer wood preserving plant table. Induction via conscious sedation. The patient was then prepped and
draped from chin to thigh in a sterile fashion. A preoperative time-out was performed with all members of the team present. Arterial and venous access was performed using fluoroscopy and ultrasound guidance with micropuncture and Seldinger
technique. Two perclose devices were used on the device side followed by access to the aorta with a stiff wire to faciltate E-sheath placement. Heparin was given. A stiff straight wire and AL-1 catheter was used to cross the aortic valve. An LVEDP
was then measured here. The stiff wire was exchanged for an extra stiff coiled tip wire. At this point a 25 mm balloon was inserted and crossed the valve. Under rapid pacing at 100 bpm we performed a balloon valvuloplasty and also injected
contrast during the study and found no significant leak around the balloon. We felt that a 26 mm nominal TAVR valve was appropriate. The valve was prepped and mounted on to the device carrier. An ACT of >250 was achieved. We verified x 3 that the
valve was mounted in the correct orientation with the skirt of the valve directed toward the tip of the device carrier. We advanced the device into the descending thoracic aorta where the valve was them mounted onto the balloon under fluoroscopy.
The device was flexed and advanced over the arch into the root and positioned across the aortic valve. Contrast fluoroscopy was used to visualize the prosthesis across the valve and to guide positioning. A pigtail catheter in the RCC as used as a
guide. We aimed to have the bottom of the device marker at the annular hinge point. The device sheath was pulled back. We performed a quick pre-deployment time out. The pacer was turned on and had capture. Blood pressure fell accordingly,
angiography was done to verify the intended final placement and the valve was deployed with 5 seconds of rapid pacing to nominal volume. The balloon was deflated and the pacer was turned off. We had recovery of vitals. The device carrier was
unflexed and positioned back in the descending thoracic aorta. A transthoracic echocardiogram was performed. The device was removed from the E-Sheath maintaining wire access followed by removal of the E-sheath as we cinched down the perclose
devices. There was acceptable hemostasis. The pigtail was withdrawn into the descending/abdominal and completion aortogram with runoff run-off angiography was performed. There was no stenosis or dissection of bilateral iliofemoral systems. There was
acceptable hemostasis of bilateral groins and manual pressure was held following wire removal. Low dose protamine was administered after checking another ACT.
All instrument, sponge, and needle counts were confirmed to be correct x 2 at the end of the operation. The patient was transferred to the cardiac intensive care unit in stable condition.
I, Dr. Uzair Keith, was present, scrubbed for, and performed all critical elements of this procedure.
Uzair Keith MD
Cardiothoracic Surgeon
[facility]
This operative dictation was created using the [employer] dictation system. Please excuse any grammatical, typographical, or 'sound alike' errors
[2024-08-22] MEDS: LEVOPHED 250 IV (12:25)
[2024-08-22 12:59] LABS: Glucose - Point of Care 156 mg/dl (70-99)
[2024-08-22] MEDS: LASIX 40 MG IV (12:59)
[2024-08-22] MEDS: NOVOLOG FLEXPEN SC (13:44)
[2024-08-22] MEDS: TOPROL XL PO (13:45)
[2024-08-22] MEDS: ROXICODONE 2.5 MG PO (14:51)
--- NOTE | 2024-08-22 14:57 | PTCARENOTE ---
Pt received post TAVR awake and alert. C/o of back pain, medicated with Roxidodone 2.5 mg as ordered. Afib, rate in the 80's to 100's. Bilateral groin sites WNL. )2
--- NOTE | 2024-08-22 15:01 | PTCARENOTE ---
O2 on at 2LNC, sat 97%. Received on Levo at 1mg.
[2024-08-22 16:02] LABS: Glucose - Point of Care 169 mg/dl (70-99)
[2024-08-22 16:05] LABS: Glucose - Point of Care 177 mg/dl (70-99)
[2024-08-22] MEDS: NOVOLOG FLEXPEN 22 UNITS SC (16:24)
[2024-08-22] MEDS: LIDOCAINE 4% PATCH 1 PATCH TOPICAL (16:25)
[2024-08-22] MEDS: ANCEF 5 IV (17:45)
[2024-08-22] MEDS: REMOVE LIDOCAINE PATCH 1 PATCH REMOVE (21:07)
[2024-08-22] MEDS: TOPROL XL 100 MG PO (21:08)
[2024-08-22 21:27] LABS: Glucose - Point of Care 220 mg/dl (70-99)
[2024-08-22] MEDS: ATIVAN 1 MG PO (22:39)
[2024-08-22] MEDS: TYLENOL 650 MG PO (22:39)
[2024-08-22] MEDS: COLACE 100 MG PO (22:40)
[2024-08-22] MEDS: MIRALAX 17 GRAMS PO (22:40)
[2024-08-22] MEDS: LYRICA 25 MG PO (22:49)
[2024-08-22] MEDS: LANTUS 0.54 UNITS SC (22:57)
[2024-08-23] VITALS (7 sets, daily range): BP systolic 84–142; BP diastolic 56–96; PULSE 96; O2SAT 98–99; BMI 45.0
[2024-08-23] MEDS: MAALOX 30 ML PO (00:39)
--- NOTE | 2024-08-23 01:25 | PTCARENOTE ---
Rec'd pt. AAOx3, VSS, pt. ambulatory in room independently. A-fib on the monitor, rate 90's-120's with activity. B/L groin site dressings intact but right with old drainage, dressing changed with no new oozing assessed; pedals palpable. Medicated
for neck/ back / leg pain with Tylenol, adequate results obtained. Pt. resting quietly at this time, rings appropriately.
--- NOTE | 2024-08-23 01:41 | W.PN.CT ---
Today's Communication / Plan
-
-pod #1
-no issues overnight
-in a-fib 90s overnight. No significant bradycardia or pauses
-LVEDP 30- diuresed with 40 Lasix (UO 1650)
-Echo today
-current meds (ASA, Eliquis, Toprol Xl 100 bid, Benicar, Norvasc, Lantus, Lyrica)
-likely d/c
Assessment / Plan
-
- Severe symptomatic aortic valve stenosis- s/p Right trans femoral TAVR with a 26 mm nominal Monge TAVR valve with balloon valvuloplasty on 08/22/24, pod #1
- Acute on chronic diastolic CHF- LVEDP 30 - diuresed wtih 40 Lasix (UO 1650)
- Intraop TTE: LVEF 60% pre and post TAVE, no wma. The aortic valve was well seated without detectable PVL and mean gradient across the new valve was 8mmHg.
- Hypertension
- HLD
- Diabetes II with polyneuropathy - on insulin
- Class 3 obesity, BMI of 44
- Chronic Atrial fibrillation- on Eliquis preop
- HIV and syphilis
- Hep B carrier
- Chronic back pain
- Anxiety
- hx MRSA via nasal swab
- Nonischemic cardiomyopathy
- Cath 01/29/24: no significant CAD
- STEWART
Discussed patient care with: Nursing and Care Team
Subjective
-
Date of Service: August 23, 2024
Objective Data
-
PT 14.8 Sec (11.4-14.6) H 08/12/24 13:01
INR 1.13 08/12/24 13:01
Vital Signs
Vital Signs
Temp Pulse Resp BP Pulse Ox
98.0 F 114 20 124/81 94
08/22/24 22:26 08/22/24 23:00 08/22/24 22:26 08/22/24 22:26 08/22/24 22:26
CT Intake/Output/Weight
08/22/24 08/22/24 08/23/24
06:59 18:59 06:59
Intake Total 750 / 750
Output Total 1650 / 1650
Balance -900 / -900
SaO2: 94
Physical Exam
-
General: Awake and AOx3
Cardiovascular: Irregular rate & rhythm, No Murmurs and No Rub
Respiratory: Clear and Decreased Breath Sounds
Incision: Other (groins are cdi, soft, nontender, no hematoma b/l)
Extremities: No Edema (2+ DPs b/l)
Abdomen: soft, nontender, nondistended, + bowel sounds
Data Reviewed
-
Lab Results: Results Reviewed
Medications: Active Meds Reviewed
Chest X-Ray: Report Reviewed and Image Reviewed
ECG: Report Reviewed and Image Reviewed
[2024-08-23 02:39] LABS: Hematocrit 38.2 % (39.0-52.0); Hemoglobin 13.7 g/dL (13.0-18.0); Mean Corp Hgb Conc. 35.9 g/dL (33.0-37.0); Mean Corpuscular Volume 81.4 fL (80.0-94.0); Platelet Count 225 10^3/uL (130-400); Red Cell Dist. Width 13.4 % (11.5-14.5)
[2024-08-23 03:02] LABS: Blood Urea Nitrogen 26 mg/dl (9-20); Calcium 8.5 mg/dl (8.4-10.2); Carbon Dioxide 22 mmol/L (22-30); Chloride 105 mmol/L (98-107); Estimated Creatinine Clearance > 125 ml/min; Glucose 191 mg/dl (70-99); Potassium 4.5 mmol/L (3.5-5.1); Sodium 136 mmol/L (135-145); eGFR > 60.00
[2024-08-23 07:28] LABS: Glucose - Point of Care 180 mg/dl (70-99)
--- NOTE | 2024-08-23 07:58 | W.PN.ANS.POP ---
Anesthesia Post Operative
- Anesthesia Post Op Note
Vital Signs Stable-See Nursing Note: Yes
Airway Patent: Yes
Adequate Pain Control: Yes
Change in Mental Status: No
Current Postoperative Nausea & Vomiting: No
Anesthesia Complications: No
General Anesthetic Recall: No
Unplanned Admission: No
Post Op Hydration Adequate: Yes
--- NOTE | 2024-08-23 08:00 | W.PN.CD ---
Today's Communication / Plan
-
Hobson check dapagliflozin 10 mg daily. If affordable, we will add to home medication list.
Echocardiogram ordered and pending.
Start furosemide 40 mg PO daily.
Outpatient BMP in one week.
Discharge pending echo.
Impression / Plan
-
Impression/Plan: 58 y/o obese male with HTN, AF, IDDM2, HIV and severe aortic valve stenosis admitted for elective TAVR, found to have acute on chronic HFpEF.
#Severe
-Chronic, progressive.
-S/P #26 Monge JANICE S3 Resilia TAVR via right femoral approach, 08/22/2024.
-Access sites are C/D/I.
-No conduction delay on telemetry.
-Antithrombotic therapy with aspirin and apixaban.
-Echocardiogram ordered and pending.
#HFpEF
-Acute on chronic, likely in large part to severe . LVEDP 25 mmHg.
-GDMT:
-Diuretics: Start furosemide 40 mg PO daily. BMP in one week.
-Beta maite: Metoprolol succinate 100 mg BID>
-ACEI/ARB/ARNi: Amlodipine/olmesartan.
-MRA: None.
-SGLT2i: Hobson check dapagliflozin 10 mg daily.
-ICD: Not indicated.
#AF
-Currently in AF.
-Rate control with metoprolol succinate 100 mg BID.
-CHADS2-Vasc = 3 (CHF, HTN, DM).
-Therapeutic anticoagulation with apixaban.
#HTN
-Chronic, stable.
-Resume home antihypertensives.
#IDDM2
-Chronic, stable.
-Resume home insulin at discharge.
-Resume tirzepatide at discharge.
#HIV
-Chronic, stable.
-Resume HAART.
#Obesity
-Chronic, stable.
-Encourage diet/exercise.
-Continue tirzepatide.
#Dispo
-IVU.
-Full code.
-Discharge pending echo.
Subjective/Interval History:
TAVR yesterday.
Feels well this morning.
Back pain treated with PRN narcotics.
DATA:
TAVR, 08/22/2024:
Conclusions:
1. Successful placement of #26 Janice S3 Ultra aortic valve via right transfemoral approach with no acute complications.
2. Acute on chronic heart failure with elevated filling pressures (LVEDP = 26 at 146.5 kg).
Physical Exam
Vital Signs/Labs
Vital Signs
Temp Pulse Resp BP Pulse Ox
36.5 C 92 20 123/73 94
08/23/24 02:13 08/23/24 02:12 08/23/24 02:13 08/23/24 02:12 08/23/24 02:13
08/21/24 08/22/24 08/23/24
11:59 11:59 11:59
Actual Weight 146.9 kg 148.5 kg
08/23/24 02:29
08/23/24 02:29
PT 14.8 Sec (11.4-14.6) H 08/12/24 13:01
INR 1.13 08/12/24 13:01
08/12/24
13:01
[id number] Pept 426
Physical Exam
Constitutional: No acute distress and Comfortable
EENT: Anicteric and Moist mucous membranes
Cardiovascular: Pedal edema is absent, JVD pressure is normal, Rhythm/rate is irregular, S1S2 is normal and Murmur/rub/gallop absent
Respiratory: Respiratory effort normal, Lungs clear to auscul., Wheeze Absent, Crackles Absent and Rhonchi Absent
GI: Soft, Distention absent, Flat, Non tender and Normal bowel sounds
Neuro/Psych: AO x 3
Other: Cath Site (Bilateral femoral access sites are C/D/I.)
Data Reviewed
-
Date of Service: August 23, 2024
Medical Decision Making: Reviewed Test Results, Independent Historian Assessment and Test Interpretation
EKG: Tracing Personally Visualized and interpreted and Report Reviewed by me
Echo: Tracing Personally Visualized and interpreted and Report Reviewed by me
X-Ray/CT/US/MRI/NUC/PET: Image Personally Visualized and interpreted and Report Reviewed by me
Medical Tests (PFT, Pathology etc): Image Personally Visualized and interpreted and Report Reviewed by me
Labs: Labs Reviewed by me
Old Records: Reviewed
[2024-08-23] MEDS: NOVOLOG FLEXPEN-MODERATE RESISTANCE 1 UNITS SC (08:09)
[2024-08-23] MEDS: NOVOLOG FLEXPEN 22 UNITS SC (08:09)
[2024-08-23] MEDS: TOPROL XL 100 MG PO (08:12)
[2024-08-23] MEDS: ELIQUIS 5 MG PO (08:12)
[2024-08-23] MEDS: BENICAR 40 MG PO (08:12)
[2024-08-23] MEDS: NORVASC 5 MG PO (08:13)
[2024-08-23] MEDS: NON-FORMULARY ITEM 1 UNIT PO (08:13)
[2024-08-23] MEDS: LIDOCAINE 4% PATCH 1 PATCH TOPICAL (08:15)
--- NOTE | 2024-08-23 09:08 | CM ---
Priced cost of Farxiga through insurance, . Estimated cost of Farxiga is $3.
TT to Cardiology + CT Surgery to update.
--- NOTE | 2024-08-23 09:16 | W.DCSUMMARY ---
Discharge Summary
Discharge Data
Date of Admission: 08/22/24
Date of Discharge: 08/23/24
-
Pending Results: No
Hospital Course
Primary care physician: Roberto Sanders
Outpatient assistant construction superintendent: Devin Cronin
Inpatient consultants: [facility] Cardiology
Procedures:
1. Right TF TAVR (08/22/24)
Primary Diagnosis:
1. Severe aortic stenosis, symptomatic
Secondary Diagnoses:
1. Hypertension
2. Diabetes w/neuropathy
3. Class III obesity (BMI 45)
4. Chronic Atrial fibrillation
5. HIV and syphilis
6. Hep B
7. MRSA+ nasal screen
8. Acute on chronic non-ischemic cardiomyopathy (LVEDP 30)
9. Anxiety
10. Chronic back pain
11. Hyperlipidemia
12. STEWART (untreated)
HPI: 58-year-old male was electively admitted 08/22/2024 for TAVR due to severe aortic stenosis and multiple comorbidities as listed above.
Hospital course: Patient underwent right trans femoral TAVR #26 mm nominal Monge TAVR valve with balloon valvuloplasty by Drs. Uzair Keith and Afshin Forman. Post procedure echo with LVEF 60%, no paravalvular leak and aortic mean gradient 8mmHg.
Patient received Lasix 40mg IV for LVEDP 30. Bilateral groin sites intact without bleeding or hematoma. Morning ECG with rate controlled atrial fibrillation. Home Eliquis dose continued and transitional ASA discontinued on discharge. CXR without
effusion. TTE reported an EF 55-60%, aortic valve gradients 26/14mmHg, no AI. Farxiga and Lasix initiated per cardiology. Patient reports having STEWART but needs sleep study. Spoke with Dr Wong alerted his office to schedule outpatient appointment
for evaluation. Patient independently ambulated in halls and is deemed stable for discharge.
Home medication changes:
New: Farxiga for diabetes and non-ischemic cardiomyopathy
Discharge Plan
-
Patient Disposition: Home (Routine Discharge)
Discharge Diagnosis/Procedures: TF TAVR
Condition: Good
Diet: Low Fat, Low Cholesterol and 2 Gram Sodium
Activity: As tolerated
Driving Restrictions: No driving for 1 week
Bathing Restrictions: OK to Shower
Others Tests: Your 30-day echocardiogram: 09/23/2024 @ 11:20 at [facility]
You will need lifelong preprocedural/predental antibiotic prophylaxis for any future dental procedures
Other Services: Cardiac Rehab
Wound Care: NO LOTIONS, POWDERS, OR CREAMS TO PUNCTURE SITES
Specialty Instructions: Weigh Daily- Call MD for wt gain/loss 3 lbs overnight/5 lbs in 1 week
Referrals:
CT Transitional Care Nurse [Outside]
Referral Note: The Cardiothoracic Transitional Care Nurse will call you to set up a visit in 1-2 days.
Yenny Cardozo CRNP [Specified Professional Personl, Cardiology] - 09/26/24 11:20 am
Roberto Sanders DO [Family Provider, Family Practice]
Prescriptions:
New
furosemide 40 mg Tablet
40 mg PO DAILY Qty: 30 0RF
dapagliflozin propanediol 10 mg Tablet
10 mg PO DAILY Qty: 30 1RF
Continued
dexlansoprazole [Dexilant] 60 MG capsule,biphase delayed releas
60 mg PO PRN PRN (Reason: heartburn)
insulin glargine [Lantus Solostar U-100 Insulin] 100 unit/mL (3 mL) Insulin Pen
54 unit SC DAILY
Patient Comments:
Pt states 8-10 units this morning.
lidocaine [Lidocaine Pain Relief] 4 % Adhesive Patch,Medicated
1 patch TOPICAL BID PRN (Reason: pain)
acetaminophen [Tylenol Arthritis Pain] 650 mg Tablet Extended Release
1,300 mg PO Q8H PRN (Reason: pain)
Probiotic
1 tab PO DAILYPRN PRN (Reason: stomach upset)
metoprolol succinate 100 mg Tablet Extended Release 24 Hr
100 mg PO BID Qty: 0 0RF
amlodipine-olmesartan 5-40 mg Tablet
1 tab PO DAILY Qty: 0 0RF
Eliquis 5 mg Tablet
5 mg PO BID Qty: 0 0RF
Delstrigo 100-300-300 mg Tablet
1 tab PO DAILY Qty: 0 0RF
Nexlizet 180-10 mg Tablet
1 tab PO DAILY Qty: 0 0RF
Mounjaro 12.5 mg/0.5 mL Pen Injector
12.5 mg SC QWEEK Qty: 0 0RF
Rx Instructions:
Takes every Monday
Changed
insulin aspart U-100 [Novolog FlexPen U-100 Insulin] 300 UNITS/3 ML insulin pen
22 unit SC AC Qty: 0 0RF
Discontinued
aspirin 81 mg Tablet,Delayed Release (Dr/Ec)
81 mg PO DAILY
Discharge Orders:
Discharge Patient (As Directed); Ordered 08/23/24
Ordered By: Breonna Hendrickson
Care Plan Goals
Care Plan Goals:
Problem: Readiness for enhanced knowledge related to diagnosis and treatment plan
Goal: Understand your diagnosis and treatment plan needs, including medications if applicable.
Instructions: Know your diagnosis, underlying causes and treatment plan options, including medications if applicable. Consult with your health care team to learn about your diagnosis and treatment plan, including medications if applicable.
Discharge Date and Time
Print Language: MALAGASY
--- NOTE | 2024-08-23 10:00 | CARDSERVDEF ---
Echocardiogram with Definity completed after protocol screening completed. Allergies verified.
Patent IV site: ___L Hand__
IV site flushed with 0.9% NaCl pre and post administration.
Diluted bolus method utilized to enhance visualization of ventricular amaya.
Total volume given: __2__ mL
Patient tolerated all procedures well without complications.
--- NOTE | 2024-08-23 10:07 | PTCARENOTE ---
Pt ambulating in room, offers no complaints.
[2024-08-23] MEDS: TYLENOL 650 MG PO (10:23)
[2024-08-23] MEDS: LASIX 40 MG PO (10:23)
[2024-08-23] MEDS: FARXIGA 10 MG PO (10:23)
--- NOTE | 2024-08-23 10:53 | CM ---
CM following for DC planning needs.
Attempted to meet w/ patient at bedside; patient was on the telephone and did not wish to be disturbed.
DC plan reviewed for home w/ CT Transitional Care RN.
There are no other anticipated needs.
Plan- Home w/ CT RN
[2024-08-23 11:16] LABS: Glucose - Point of Care 130 mg/dl (70-99)
[2024-08-23] MEDS: NOVOLOG FLEXPEN-MODERATE RESISTANCE SC (11:26)
[2024-08-23] MEDS: NOVOLOG FLEXPEN SC (12:20)
[2024-08-23] MEDS: NOVOLOG FLEXPEN 10 UNITS SC (12:22)
--- NOTE | 2024-08-23 15:32 | PTCARENOTE ---
Discharge instructions reviewed with Pt, he expressed understanding. Med information on Lasix and Farxiga printed out and given to Pt from [employer].
== END 2024-08-23 15:40 | disposition home or self-care (01) | DRG 266 ==
LOC: IVU 07:32
PROVIDERS: Physician Assistant Medical; ADMITTING PHYSICIAN Thoracic Surgery (Cardiothoracic Vascular Surgery); CONSULT PHYSICIAN Internal Medicine Cardiovascular Disease; FAMILY PHYSICIAN Family Medicine; REFERRING PHYSICIAN Internal Medicine
PROC: 02RF38Z Replacement of Aortic Valve with Zooplastic Tissue, Percutaneous Approach (ICD-10-PCS; 2024-08-22)
DX: I35.0 Nonrheumatic aortic (valve) stenosis (principal); I50.33 Acute on chronic diastolic (congestive) heart failure; I42.8 Other cardiomyopathies; I48.20 Chronic atrial fibrillation, unspecified; B18.1 Chronic viral hepatitis B without delta-agent; Z68.42 Body mass index [BMI] 45.0-49.9, adult; E11.40 Type 2 diabetes mellitus with diabetic neuropathy, unspecified; I11.0 Hypertensive heart disease with heart failure; Z21 Asymptomatic human immunodeficiency virus [HIV] infection status; F41.9 Anxiety disorder, unspecified; E66.813 Obesity, class 3; E78.5 Hyperlipidemia, unspecified; G47.33 Obstructive sleep apnea (adult) (pediatric); G89.29 Other chronic pain; M54.9 Dorsalgia, unspecified; Z79.4 Long term (current) use of insulin; Z82.49 Family history of ischemic heart disease and other diseases of the circulatory system
CPT/HCPCS: 33361; 36415; 71045; 71046; 80048; 80053; 81003; 81015; 82248; 82962; 83036; 83880; 85025; 85027; 85347; 85610; 86850; 86900; 86901; 86920; 87070; 93005; 93308; 93321; 93325; C1760; C1769; C1894; Q9967

== ENCOUNTER 2024-09-19 23:13 | Emergency (ER) | payer OTHER, SELFPAY ==
[2024-09-19 23:16] VITALS: BP 124/84
--- NOTE | 2024-09-19 23:42 | ED.GENMED ---
History of Present Illness
General
Chief Complaint: Fall
Time Seen by Provider: 09/19/24 23:32
History of Present Illness
History of Present Illness:
PAST MEDICAL HISTORY AND REVIEW OF OLD RECORDS
- The patient has history of A-fib on Eliquis and is a diabetic. The patient had a TAVR 1 month ago.
Note:
CHIEF COMPLAINT(S)
Fall resulting in diffuse pain, concern for neck and back injury.
HISTORY OF PRESENT ILLNESS
The patient is a 59-year-old male who experienced a fall from a plastic outdoor chair at a restaurant around 9:30 to 9:45 PM. The fall did not result in head trauma but led to multiple areas of pain. The patient reported neck pain, abdominal
discomfort, and pain in the back. Additional regions causing discomfort include the chest, without severe pain, and a notable headache, despite the patient not typically experiencing headaches. The patient described particular pain in the left side
of the body, foot, and was concerned about a possibly exacerbated Achilles tendon issue. He denied any cuts or lacerations resulting from the fall. The patient is currently taking Apixaban (Eliquis), which necessitates further caution.
EXAM
- General: Well appearing in no distress
- Head: No craniofacial trauma
- C-spine: Minimal midline c-spine tenderness
- Back: Normal AROM thoracolumbar spine with some questionable midline lumbar tenderness
- HEENT: Moist oral mucosa, no blood
- Cardiovascular: No murmurs, normal heart rate, regular rhythm, No chest wall tenderness
- Pulmonary: No respiratory distress, breath sounds are clear and equal
- Abdomen: Soft with no peritoneal signs, no tenderness
- Neurologic: Excellent strength all extremities, no coordination deficits
- Psychiatric: Appropriate mental status, normal insight and judgement
- Extremities: Nontender, no edema, moves all extremities equally, some minimal tenderness to the left proximal humerus and lateral aspect of the left foot. He reports acute on chronic discomfort at the insertion site of the right Achilles
tenderness on exam.
- Skin: No rash, no lesions
CHRONIC MEDICAL CONDITIONS SIGNIFICANTLY AFFECTING CARE
Patient is on long-term anticoagulation therapy with Apixaban, which influences bleeding risk post-fall.
PLAN
- Recommend cervical collar application due to reported neck pain to prevent further injury.
- Obtain computed tomography (CT) scan of the brain due to fall history and anticoagulation use.
- Perform a series of X-rays, including imaging of the foot, shoulder, and lower back, to assess for potential fractures or other injuries.
- Advise on possible imaging for the abdomen to further evaluate the stomach discomfort.
DIFFERENTIAL DIAGNOSIS
The Differential Diagnosis includes, in no particular order and is not limited to:
1. Soft tissue injury due to fall
2. Cervical spine injury
3. Concussion
4. Musculoskeletal back pain
5. Costochondritis
6. Abdominal contusion
7. Headache secondary to fall
8. Achilles tendon strain
9. Fracture or contusion of the foot
10. Hematoma (due to anticoagulation)
RADIOLOGY
- CT of the head and C-spine showed no acute traumatic injury. X-ray L shoulder no fx; L spine no fx; L foot neg fx
UPDATE
-SUMMARY OF ENCOUNTER
The patient, a 59-year-old male, was seen in the emergency department after experiencing a fall that led to neck, back, and other diffuse body pain. The patient is on Apixaban, raising concerns about potential bleeding risks after the fall. He
underwent a CT scan and X-rays to assess for possible injuries. The CT scan of the brain showed no bleeding, and there were no fractures found in the neck or other regions of concern on the X-rays. The patients imaging results were deemed
non-alarming, and he is expected to recover without severe complications. The decision was made to allow the patient to return home, as the test results showed no acute injuries.
DISPOSITION
Discharge.
ASSESSMENT
The patient has experienced a fall with multiple areas of pain but imaging results indicate no acute injury or fractures.
PLAN
The patient is to be discharged with recommendations for home care management, including using a cervical collar as needed for neck support and taking care with any physical activity to avoid further injury. If symptoms persist or worsen, further
evaluation may be necessary.
INDEPENDENT REVIEW OF LABS AND INTERPRETATION OF TESTS
- My independent review of the CT scan indicates no bleeding in the brain.
- My independent interpretation of the lumbar spine X-ray, shoulder X-ray, and other areas shows no fractures or significant injuries.
PATIENT EDUCATION AND COUNSELING
The patient was informed of the imaging results indicating no acute or alarming findings and was counseled on monitoring symptoms. He was advised on the importance of careful activity and the use of a cervical collar to manage neck pain.
FOLLOW-UP INSTRUCTIONS
Please follow up with primary care for further evaluation and management if symptoms persist or worsen. Additional imaging or evaluation can be considered based on the patients progress.
MEDICAL DECISION MAKING
- Chronic conditions affecting care include the patients anticoagulation therapy with Apixaban.
- Differential Diagnosis includes: Soft tissue injury due to fall, cervical spine injury, concussion, musculoskeletal back pain, costochondritis, abdominal contusion, headache secondary to fall, Achilles tendon strain, fracture or contusion of the
foot, hematoma due to anticoagulation.
- Data:
- Category 1: Tests included CT scan and X-rays of various regions (lumbar spine, shoulder, foot). The CT and X-rays were independently interpreted, showing no acute injuries.
- Category 3: Evaluation and management discussed with radiologist.
-Risk: Consideration of Admission/Observation: Escalation of care including admission/observation was considered due to the complexity and risk of the patients presenting complaint, exam findings, and anticoagulation status. However, I feel the
patient is safe for outpatient management with close follow-up. Reasoning: The work-up is reassuring, without revealing any acute life/organ-threatening processes, the patients symptoms are well controlled upon reevaluation, reexamination is
reassuring, vitals are stable, the patient agrees with discharge, and is reliable for follow-up.
DIAGNOSIS
1. Soft tissue injury due to fall (T14.90XA)
2. Cervical spine strain (S16.1XXA)
3. Musculoskeletal back pain (M54.5)
4. Headache secondary to fall (R51.9)
5. Risk of bleeding due to anticoagulation therapy (Z79.01)
Past History
Past History
ED Past Medical History: Arrthythmia (Atrial fib), GERD, HTN, Hypercholesterolemia, NIDDM, Psychiatric (anxiety,) and Other (Chronic back problems, HIV, kidney stones, hepatitis B, PNA,)
ED Past Surgical History: None
Social History
Tobacco: Non-smoker
Alcohol: Occasional
Drug: None
Personal: Single
Living: with roommate
Employment: Not employed
Family History
Family History: Other (Coronary artery disease, CVA, cancer)
Phy Exam
Physical Exam
Physical Exam:
See HPI
Course
Orders/Labs/Results
Orders:
Orders
09/19/24 23:41
CT Cervical Spine W/o Iv Contr Urgent
Comment:
Reason For Exam: trauma pain
CT Head W/o Iv Contrast Urgent
Comment:
Reason For Exam: trauma pain
09/20/24 00:10
CR Foot - Left Min 3 Views Urgent
Reason For Exam: trauma
CR Lumbar Spine Comp Min 4 Vw* Urgent
Reason For Exam: trauma
CR Shoulder, Trauma - Left Urgent
Reason For Exam: trauma
Vital Signs
Initial and Last Documented VS:
Initial Vital Signs
Temp Pulse Resp BP Pulse Ox
36.6 C 79 16 124/84 95
09/19/24 23:16 09/19/24 23:16 09/19/24 23:16 09/19/24 23:16 09/19/24 23:16
Last Documented Vital Signs
Temp Pulse Resp BP Pulse Ox
36.9 C 79 16 124/84 98
09/20/24 00:14 09/19/24 23:16 09/19/24 23:16 09/19/24 23:16 09/19/24 23:56
*Pulse Oximetry
SaO2: 95
Oxygen Mode of Delivery: Room air
Patient hypoxic: no
*Critical Care Note
Total Time (30-74mins, 75-104mins- exclusive of procedures): Not Applicable
ED Attending Note
-
Portions of this chart may have been created with voice recognition software.� Occasional wrong word or��sound alike� substitutions may have occurred due to the inherent limitations of voice recognition software.
Discharge Plan
Departure
Prescriptions:
No Action
dexlansoprazole [Dexilant] 60 MG capsule,biphase delayed releas
60 mg PO PRN PRN (Reason: heartburn)
insulin glargine [Lantus Solostar U-100 Insulin] 100 unit/mL (3 mL) Insulin Pen
54 unit SC DAILY
Patient Comments:
Pt states 8-10 units this morning.
lidocaine [Lidocaine Pain Relief] 4 % Adhesive Patch,Medicated
1 patch TOPICAL BID PRN (Reason: pain)
acetaminophen [Tylenol Arthritis Pain] 650 mg Tablet Extended Release
1,300 mg PO Q8H PRN (Reason: pain)
Probiotic
1 tab PO DAILYPRN PRN (Reason: stomach upset)
metoprolol succinate 100 mg Tablet Extended Release 24 Hr
100 mg PO BID Qty: 0 0RF
insulin aspart U-100 [Novolog FlexPen U-100 Insulin] 300 UNITS/3 ML insulin pen
22 unit SC AC Qty: 0 0RF
amlodipine-olmesartan 5-40 mg Tablet
1 tab PO DAILY Qty: 0 0RF
Eliquis 5 mg Tablet
5 mg PO BID Qty: 0 0RF
Delstrigo 100-300-300 mg Tablet
1 tab PO DAILY Qty: 0 0RF
Nexlizet 180-10 mg Tablet
1 tab PO DAILY Qty: 0 0RF
Mounjaro 12.5 mg/0.5 mL Pen Injector
12.5 mg SC QWEEK Qty: 0 0RF
Rx Instructions:
Takes every Monday
furosemide 40 mg Tablet
40 mg PO DAILY Qty: 30 0RF
Referrals:
Roberto Sanders DO [Family Provider, Family Practice]
Interventions
Interventions:
*Risk Screen - Suicide Last Done: 09/19/24 23:16
*General Assessment Last Done: 09/19/24 23:56
*Neglect/Abuse Screening Last Done: 09/19/24 23:16
*ED- Fall Risk Assessment Last Done: 09/19/24 23:16
*ED COVID-19 Vaccine History Last Done: 09/19/24 23:16
ED-Musculoskeletal Assessment Last Done: 09/19/24 23:56
ED- Neurological Assessment Last Done: 09/19/24 23:56
ED-Skin Assessment Last Done: 09/19/24 23:56
Discharge Date and Time
Print Language: UPPER SORBIAN
[2024-09-20 00:08] VITALS: BMI 42.3
[2024-09-20 00:55] VITALS: BP 107/81
== END 2024-09-20 01:30 | disposition home or self-care (01) ==
LOC: EMR 23:13
PROVIDERS: EMERGENCY PHYSICIAN Emergency Medicine; FAMILY PHYSICIAN Family Medicine
DX: S16.1XXA Strain of muscle, fascia and tendon at neck level, initial encounter (principal); M54.9 Dorsalgia, unspecified; R10.9 Unspecified abdominal pain; M79.672 Pain in left foot; G44.309 Post-traumatic headache, unspecified, not intractable; W07.XXXA Fall from chair, initial encounter; Y92.511 Restaurant or cafe as the place of occurrence of the external cause; I48.91 Unspecified atrial fibrillation; E11.9 Type 2 diabetes mellitus without complications; F41.9 Anxiety disorder, unspecified; Z21 Asymptomatic human immunodeficiency virus [HIV] infection status; E78.00 Pure hypercholesterolemia, unspecified; I10 Essential (primary) hypertension; K21.9 Gastro-esophageal reflux disease without esophagitis; Z98.890 Other specified postprocedural states; Z79.01 Long term (current) use of anticoagulants; Z88.2 Allergy status to sulfonamides; Z88.8 Allergy status to other drugs, medicaments and biological substances
CPT/HCPCS: 99284; 70450; 72110; 72125; 73030; 73630

== ENCOUNTER → 2024-09-23 13:46 | Outpatient (REF) | payer OTHER, SELFPAY | LOC: RCS 13:46 | PROVIDERS: ATTENDING PHYSICIAN Internal Medicine Cardiovascular Disease; FAMILY PHYSICIAN Family Medicine | DX: Z95.2 Presence of prosthetic heart valve (principal) | CPT/HCPCS: 93306 ==

== ENCOUNTER 2024-10-29 22:02 | Emergency (ER) | payer OTHER, SELFPAY ==
[2024-10-29 22:08] VITALS: BP 136/80
[2024-10-29 22:28] LABS: Hematocrit 43.9 % (39.0-52.0); Hemoglobin 14.9 g/dL (13.0-18.0); Mean Corp Hgb Conc. 33.9 g/dL (33.0-37.0); Mean Corpuscular Volume 81.3 fL (80.0-94.0); Nucleated Red Blood Cells % 0 % (-); Platelet Count 206 10^3/uL (130-400); Red Cell Dist. Width 13.3 % (11.5-14.5)
[2024-10-29 22:53] VITALS: BP 115/72
[2024-10-29 22:53] LABS: ALT (SGPT) 20 U/L (0-50); AST (SGOT) 24 U/L (17-59); Albumin 4.4 g/dl (3.5-5.0); Alkaline Phosphatase 62 U/L (38-126); Blood Urea Nitrogen 22 mg/dl (9-20); Calcium 8.9 mg/dl (8.4-10.2); Carbon Dioxide 27 mmol/L (22-30); Chloride 104 mmol/L (98-107); Glucose 82 mg/dl (70-99); Potassium 4.4 mmol/L (3.5-5.1); Sodium 138 mmol/L (135-145); Total Protein 7.5 g/dl (6.3-8.2); eGFR > 60.00
[2024-10-29 23:00] VITALS: BP 114/71
[2024-10-29 23:04] LABS: Troponin I < 0.012 ng/ml
[2024-10-29 23:11] VITALS: BMI 43.5
[2024-10-30] VITALS: BP 115/69
--- NOTE | 2024-10-30 00:19 | ED.GENMED ---
History of Present Illness
<Cedrick Diggs MD, Resident - Last Filed: 10/30/24 04:43>
General
Chief Complaint: Chest Pain
Source: patient
Time Seen by Provider: 10/29/24 23:52
History of Present Illness
History of Present Illness:
Samuel is a 59-year-old male with history of early Alzheimer's, A-fib on Eliquis, hypertension, hyperlipidemia, renal calculi, type 2 diabetes, anxiety, GERD, STEWART not using CPAP, and severe aortic stenosis s/p TAVR in 08/2024 (follows with Dr. Cronin) who
presents with 5 days of constant chest pain in the mid upper sternum now on the left side, neck pain, headache, and intermittent blurry vision in the past few weeks. He reports that for the past 5 days he has been having waxing and waning chest
pain that has now been constant for the past day and a half. He reports that it started on his right side but now is in the mid sternum and left side, with radiation to the neck. He also endorses a headache, blurred vision for the past few weeks,
and an episode of left eye (with known cataracts) blindness 2-1/2 weeks ago. Moreover, he states he was diagnosed with a UTI 2-3 weeks ago at an urgent care and finished a course of antibiotics, however he continues to have frequency and dysuria as
well as blood in the urine. He states that he has not been the best to taking his medications as prescribed (a.m. versus p.m.) but is trying to get on them. In addition, he endorses abdominal pain with constipation but denies fevers, chills,
nausea, vomiting, trauma to the area, or missing any doses of medications.
Past History
<Cedrick Diggs MD, Resident - Last Filed: 10/30/24 04:43>
Past History
ED Past Medical History: Arrthythmia (Atrial fib), GERD, HTN, Hypercholesterolemia, NIDDM, Psychiatric (anxiety,) and Other (Chronic back problems, HIV, kidney stones, hepatitis B, PNA,)
ED Past Surgical History: None
Social History
Tobacco: Non-smoker
Alcohol: Occasional
Drug: None
Personal: Single
Living: with roommate
Employment: Not employed
Family History
Family History: Other (Coronary artery disease, CVA, cancer)
Phy Exam
<Cedrick Diggs MD, Resident - Last Filed: 10/30/24 04:43>
General Physical Exam
General Presentation: moderate distress
Cardiovascular Exam
Cardiovascular Exam: no edema and irregularly irregular (Known A-fib)
Pulmonary Exam
Pulmonary Exam: lungs clear and no respiratory distress
Gastrointestinal Exam
Gastrointestinal Exam: non tender and soft
Scores
<Cedrick Diggs MD, Resident - Last Filed: 10/30/24 04:43>
Heart Score for Chest Pain Patients
STEMI patient?: No
History: Slightly or Non-Suspicious
ECG: Normal
Age: >45 - <65 years
Risk Factors: 1 or 2 Risk Factors
Troponin: >1 - <3 x Normal Limit
Heart Score for Chest Pain Patients: 3
Heart Score Risk: 2.5% MACE over next 6 weeks
<Theodore Barlow, DO - Last Filed: 10/30/24 04:59>
Heart Score for Chest Pain Patients
Heart Score for Chest Pain Patients: 3
Heart Score Risk: 2.5% MACE over next 6 weeks
Course
<Cedrick Diggs MD, Resident - Last Filed: 10/30/24 04:43>
Orders/Labs/Results
Orders:
Orders
10/29/24 22:02
Electrocardiogram (*1) Urgent
Reason for Study: Chest Pain
EKG- Treatment ONCE
10/29/24 22:21
Complete Blood Count/With Diff Urgent
Comprehensive Metabolic Panel Urgent
Troponin I Urgent
10/30/24 00:33
Metoprolol Xl [Toprol Xl] 100 mg PO NOW STA
10/30/24 00:34
Apixaban [Eliquis] 5 mg PO BID ONE
10/30/24 00:39
Glucose Urgent
Comment: glucose check
Urinalysis Reflex To Culture Urgent
Date Specimen was Collected: 10/30/24
Time Specimen was Collected: 00:34
Urine Microscopic Reflex Cult Urgent
Urine Culture Urgent
ERIKA Source: U
Specimen Description:
Date Specimen was Collected: 10/30/24
Time Specimen was Collected: 00:34
10/30/24 02:56
Troponin I Urgent
10/30/24 04:40
Fosfomycin [Monurol] 3 gm PO ONCE ONE
10/30/24 04:56
Acetaminophen [Tylenol] 650 mg PO NOW STA
Abnormal Lab Results
10/29/24 10/30/24
22:21 00:39
BUN 22 H mg/dl
(9-20)
Urine WBC (Reflex) 11-15 A /HPF
(0-5)
Urine Bacteria (Reflex) Few A
(Negative)
Urine Glucose 3+ A
(Negative)
Urine Albumin (Reflex) 1+ A
(Neg - Trace)
10/29/24 22:21
10/30/24 00:39
Vital Signs
Initial and Last Documented VS:
Initial Vital Signs
Temp Pulse Resp BP Pulse Ox
98.2 F 80 20 136/80 96
10/29/24 22:08 10/29/24 22:08 10/29/24 22:08 10/29/24 22:08 10/29/24 22:08
Last Documented Vital Signs
Temp Pulse Resp BP Pulse Ox
98.2 F 82 17 99/65 91
10/29/24 22:08 10/30/24 04:11 10/30/24 04:11 10/30/24 04:11 10/30/24 02:45
<Theodore Barlow, DO - Last Filed: 10/30/24 04:59>
Orders/Labs/Results
Orders:
Orders
10/29/24 22:02
Electrocardiogram (*1) Urgent
Reason for Study: Chest Pain
EKG- Treatment ONCE
10/29/24 22:21
Complete Blood Count/With Diff Urgent
Comprehensive Metabolic Panel Urgent
Troponin I Urgent
10/30/24 00:33
Metoprolol Xl [Toprol Xl] 100 mg PO NOW STA
10/30/24 00:34
Apixaban [Eliquis] 5 mg PO BID ONE
10/30/24 00:39
Glucose Urgent
Comment: glucose check
Urinalysis Reflex To Culture Urgent
Date Specimen was Collected: 10/30/24
Time Specimen was Collected: 00:34
Urine Microscopic Reflex Cult Urgent
Urine Culture Urgent
ERIKA Source: U
Specimen Description:
Date Specimen was Collected: 10/30/24
Time Specimen was Collected: 00:34
10/30/24 02:56
Troponin I Urgent
10/30/24 04:40
Fosfomycin [Monurol] 3 gm PO ONCE ONE
10/30/24 04:56
Acetaminophen [Tylenol] 650 mg PO NOW STA
Abnormal Lab Results
10/29/24 10/30/24
22:21 00:39
BUN 22 H mg/dl
(9-20)
Urine WBC (Reflex) 11-15 A /HPF
(0-5)
Urine Bacteria (Reflex) Few A
(Negative)
Urine Glucose 3+ A
(Negative)
Urine Albumin (Reflex) 1+ A
(Neg - Trace)
10/29/24 22:21
10/30/24 00:39
Vital Signs
Initial and Last Documented VS:
Initial Vital Signs
Temp Pulse Resp BP Pulse Ox
98.2 F 80 20 136/80 96
10/29/24 22:08 10/29/24 22:08 10/29/24 22:08 10/29/24 22:08 10/29/24 22:08
Last Documented Vital Signs
Temp Pulse Resp BP Pulse Ox
98.2 F 82 17 99/65 91
10/29/24 22:08 10/30/24 04:11 10/30/24 04:11 10/30/24 04:11 10/30/24 02:45
<Cedrick Diggs MD, Resident - Last Filed: 10/30/24 04:43>
MDM/Problems Addressed
MDM/Problems Addressed:
Samuel is a 59-year-old male with history of early Alzheimer's, A-fib on Eliquis, hypertension, hyperlipidemia, renal calculi, type 2 diabetes, anxiety, GERD, STEWART not using CPAP, and severe aortic stenosis s/p TAVR in 08/2024 (follows with Dr. Cronin) who
presents with 5 days of constant chest pain in the mid upper sternum now on the left side, neck pain, headache, and intermittent blurry vision in the past few weeks.
#Chest pain
#History of aortic stenosis s/p TAVR 08/2024
Echo 09/23 showing severe left atrial enlargement, mild mitral regurgitation, LVEF 45 to 50%
- CBC and CMP WNL
- Troponin<0.012 x 2
- EKG with known A-fib, same as previous
#Dysuria
#Urinary frequency
Patient reports he had a UTI diagnosed in urgent care 2 to 3 weeks ago and completed a course of antibiotics. However he continues to have dysuria and frequency, now with some blood in his urine.
- UA with 11-15 WBC, few urine bacteria, 3+ glucose
--Monumol x 1
<Cedrick Diggs MD, Resident - Last Filed: 10/30/24 04:43>
*Pulse Oximetry
SaO2: 95
Oxygen Mode of Delivery: Room air
Patient hypoxic: no
*Critical Care Note
Total Time (30-74mins, 75-104mins- exclusive of procedures): Not Applicable
ED Attending Note
<Cedrick Diggs MD, Resident - Last Filed: 10/30/24 04:43>
-
Portions of this chart may have been created with voice recognition software.� Occasional wrong word or��sound alike� substitutions may have occurred due to the inherent limitations of voice recognition software.
<Theodore Barlow, DO - Last Filed: 10/30/24 04:59>
ED Attending Note
Patient seen and examined by attending physician: Yes
I performed a history and physical exam of patient and discussed management with resident, I reviewed resident's note and agree with documented findings and plan of care.: Yes
ED Attending Note:
Note:
CHIEF COMPLAINT(S)
- Chest pain
- Visual disturbances
- Headaches
HISTORY OF PRESENT ILLNESS
The patient is a 59-year-old male with a history of chest pains persisting for a prolonged period, currently exacerbated over the last two days. He notes that despite undergoing transcatheter aortic valve replacement (TAVR) earlier in August, the
chest pains have persisted. The patient expressed that these episodes can sometimes last for one to two hours.
The patient also reports new-onset visual disturbances, described as blurriness and visual striations, which have been present since undergoing TAVR. He associates these symptoms with migraine headaches, which were confirmed by an director of public relations.
He reports experiencing dizziness and vertigo with such severity that assistance was required to move to a stable surface. These visual disturbances and dizziness occur intermittently, including during the day and at night.
The patient has also been experiencing headaches and has been taking Tylenol Arthritis for joint pain relief, particularly for shoulder arthritis, which he claims he has been 'living on.' He is concerned about the possibility of Tylenol contributing
to his headaches.
The patient mentions lifestyle modifications to address his cardiac symptoms, such as reducing sodium intake and avoiding high-sodium foods.
PAST MEDICAL AND SURIGICAL HISTORY
- Underwent a transcatheter aortic valve replacement (TAVR) in August.
CHRONIC MEDICAL CONDITIONS SIGNIFICANTLY AFFECTING CARE
- Osteoarthritis, particularly noted in shoulders.
- History of cardiovascular issues, status post TAVR.
SOCIAL HISTORY
The patient states he previously smoked cannabis but discontinued use due to respiratory issues associated with smoking. He rarely consumes alcohol, with his last drink being two months ago.
MEDICATIONS
The patient has been using Tylenol Arthritis for joint pain relief, applying Tylenol cream, and notes concern over the potential overuse. He was advised not to exceed 3,000 mg of acetaminophen daily.
REVIEW OF SYSTEMS
- Cardiovascular: Persistent chest pain despite TAVR.
- Neurological: Reports of visual disturbances, headaches, dizziness, and vertigo.
- Musculoskeletal: Joint pain, primarily in shoulders.
PHYSICAL EXAM
General: Alert, no acute distress.
Skin: Warm, dry.
Head: Normocephalic, atraumatic.
Neck: Supple, trachea midline.
Eye, Ear, Nose, Mouth, and Throat: Oral mucosa moist.
Cardiovascular: Normal peripheral perfusion, No edema.
Respiratory: Respirations are non-labored.
Gastrointestinal: Abdomen nondistended.
Back: Normal range of motion, Normal alignment.
Musculoskeletal: Normal range of motion, normal strength.
Neurological: Alert and oriented to person, place, time, and situation, No focal neurological deficit observed.
Psychiatric: Cooperative, appropriate mood & affect.
PLAN
- Discharge the patient for follow-up with cardiology, specifically with Dr. Lee, to consider further cardiac evaluation and possible provocative testing.
- Recommendation to monitor and moderate the intake of Tylenol, advise on non-acetaminophen pain relief options, such as Volterran cream.
- Encourage continued lifestyle modifications focusing on dietary sodium reduction and balanced nutrition.
DIFFERENTIAL DIAGNOSIS
The Differential Diagnosis includes, in no particular order and is not limited to:
1. Angina pectoris
2. Myocardial infarction
3. Migraine headaches
4. Vertigo
5. Medication-overuse headache
6. Anxiety or stress-induced symptoms
7. Aortic valve complications
8. Vision-related neurological disorder
9. Hypertension
10. Vestibular dysfunction
Disposition:
SUMMARY OF ENCOUNTER
The patient is a 59-year-old male who presented with complaints of chest pain persisting for several days. At the time of assessment, the patient was not experiencing active chest pain. The decision was made to discharge the patient home in stable
condition after appropriate evaluation and reassurance.
DISPOSITION
Discharge
PLAN
The patient will follow up with Dr. Lee for further cardiac evaluation to explore potential cardiovascular issues further, particularly considering his past transcatheter aortic valve replacement (TAVR).
MEDICAL DECISION MAKING
-Complexity of Data Reviewed: Chronic conditions affecting care include osteoarthritis and history of cardiovascular issues, status post TAVR. Differential diagnosis includes angina pectoris, myocardial infarction, migraine headaches, vertigo,
medication-overuse headache, anxiety or stress-induced symptoms, aortic valve complications, vision-related neurological disorder, hypertension, and vestibular dysfunction.
-Risk: Consideration of Admission/Observation was conducted. However, ultimately the patient appears safe for outpatient management with close follow-up. Reasoning: Work-up was reassuring, did not reveal any acute life/organ threatening processes,
patients symptoms were well controlled upon reevaluation, reexamination was reassuring, vitals were stable, and the patient was agreeable with discharge. The patient is reliable for follow-up.
DIAGNOSIS
- Chest pain, unspecified (ICD-10: R07.9)
- History of cardiovascular disease following TAVR (ICD-10: Z87.73)
Discharge Plan
Departure
Patient Disposition: Home (Routine Discharge)
Date of Disposition: 10/30/24
Time of Disposition: 04:41
Patient with high blood pressure during this ER visit?: No
Discharge Problem:
Chest pain
Instructions: Chest Pain CBC Follow Up
Prescriptions:
No Action
dexlansoprazole [Dexilant] 60 MG capsule,biphase delayed releas
60 mg PO PRN PRN (Reason: heartburn)
insulin glargine [Lantus Solostar U-100 Insulin] 100 unit/mL (3 mL) Insulin Pen
54 unit SC DAILY
Patient Comments:
Pt states 8-10 units this morning.
lidocaine [Lidocaine Pain Relief] 4 % Adhesive Patch,Medicated
1 patch TOPICAL BID PRN (Reason: pain)
acetaminophen [Tylenol Arthritis Pain] 650 mg Tablet Extended Release
1,300 mg PO Q8H PRN (Reason: pain)
Probiotic
1 tab PO DAILYPRN PRN (Reason: stomach upset)
metoprolol succinate 100 mg Tablet Extended Release 24 Hr
100 mg PO BID Qty: 0 0RF
insulin aspart U-100 [Novolog FlexPen U-100 Insulin] 300 UNITS/3 ML insulin pen
22 unit SC AC Qty: 0 0RF
amlodipine-olmesartan 5-40 mg Tablet
1 tab PO DAILY Qty: 0 0RF
Eliquis 5 mg Tablet
5 mg PO BID Qty: 0 0RF
Delstrigo 100-300-300 mg Tablet
1 tab PO DAILY Qty: 0 0RF
Nexlizet 180-10 mg Tablet
1 tab PO DAILY Qty: 0 0RF
Mounjaro 12.5 mg/0.5 mL Pen Injector
12.5 mg SC QWEEK Qty: 0 0RF
Rx Instructions:
Takes every Monday
furosemide 40 mg Tablet
40 mg PO DAILY Qty: 30 0RF
oxycodone-acetaminophen [Percocet] 5-325 mg tablet
1 tab PO Q8H PRN (Reason: Pain) Qty: 9 0RF
Referrals:
Abilio Dc DO [Non-Admitting Privileges, Orthopedics]
Referral Note: Follow-up for pain meds
Roberto Sanders DO [Family Provider, Family Practice]
Interventions
Interventions:
*Risk Screen - Suicide Last Done: 10/29/24 22:08
*General Assessment Last Done: 10/29/24 23:05
*Neglect/Abuse Screening Last Done: 10/29/24 22:08
*ED- Fall Risk Assessment Last Done: 10/29/24 23:05
*ED COVID-19 Vaccine History Last Done: 10/29/24 23:05
ED- Cardiac Assessment Last Done: 10/29/24 23:05
Discharge Date and Time
Print Language: AUSTRALIAN
[2024-10-30] MEDS: TOPROL XL 100 MG PO (00:48)
[2024-10-30] MEDS: ELIQUIS 5 MG PO (00:48)
[2024-10-30 00:49] LABS: Urine Character Clear (Clear)
[2024-10-30 00:56] LABS: Urine Red Blood Cell None Seen /HPF (0-2)
[2024-10-30 01:00] VITALS: BP 108/66
[2024-10-30 02:00] VITALS: BP 129/76
--- NOTE | 2024-10-30 02:17 | DOWNTIME ---
There was a [employer] Downtime on 10/30/2024 from 0100 to 10/30/2024 at 0215. Downtime documentation of patient's care, including medication administrations, has been reconciled in the electronic record per guidelines. Refer to the
patient's paper chart under the miscellaneous tab to see printed paper medication records and downtime forms.
[2024-10-30 02:18] LABS: Glucose 83 mg/dl (70-99)
[2024-10-30 03:45] LABS: Troponin I < 0.012 ng/ml
[2024-10-30 04:11] VITALS: BP 99/65
[2024-10-30] MEDS: TYLENOL 650 MG PO (05:02)
[2024-10-30] MEDS: MONUROL 3 GM PO (05:02)
== END 2024-10-30 05:10 | disposition home or self-care (01) ==
LOC: EMR 22:02
PROVIDERS: EMERGENCY PHYSICIAN Student in an Organized Health Care Education/Training Program; FAMILY PHYSICIAN Family Medicine; REFERRING PHYSICIAN Internal Medicine
DX: R07.9 Chest pain, unspecified (principal); E11.9 Type 2 diabetes mellitus without complications; E78.00 Pure hypercholesterolemia, unspecified; F02.80 Dementia in other diseases classified elsewhere, unspecified severity, without behavioral disturbance, psychotic disturbance, mood disturbance, and anxiety; G30.9 Alzheimer's disease, unspecified; F12.90 Cannabis use, unspecified, uncomplicated; G47.33 Obstructive sleep apnea (adult) (pediatric); I25.10 Atherosclerotic heart disease of native coronary artery without angina pectoris; I48.91 Unspecified atrial fibrillation; Z79.01 Long term (current) use of anticoagulants; Z95.2 Presence of prosthetic heart valve
CPT/HCPCS: 99283; 80053; 81003; 81015; 82947; 84484; 85025; 87086; 93005

== ENCOUNTER 2024-12-13 21:41 | Emergency (ER) | payer OTHER, SELFPAY ==
[2024-12-13 21:45] VITALS: BP 149/77
[2024-12-13 22:29] LABS: Hematocrit 44.8 % (39.0-52.0); Hemoglobin 15.2 g/dL (13.0-18.0); Mean Corp Hgb Conc. 33.9 g/dL (33.0-37.0); Mean Corpuscular Volume 81.0 fL (80.0-94.0); Nucleated Red Blood Cells % 0 % (-); Platelet Count 218 10^3/uL (130-400); Red Cell Dist. Width 13.8 % (11.5-14.5)
[2024-12-13 22:46] LABS: Urine Character Clear (Clear)
[2024-12-13 22:48] LABS: ALT (SGPT) 16 U/L (0-50); AST (SGOT) 21 U/L (17-59); Albumin 4.0 g/dl (3.5-5.0); Alkaline Phosphatase 68 U/L (38-126); Blood Urea Nitrogen 22 mg/dl (9-20); Calcium 8.9 mg/dl (8.4-10.2); Carbon Dioxide 24 mmol/L (22-30); Chloride 104 mmol/L (98-107); Glucose 138 mg/dl (70-99); Potassium 4.2 mmol/L (3.5-5.1); Sodium 132 mmol/L (135-145); Total Protein 7.2 g/dl (6.3-8.2); eGFR > 60.00
[2024-12-13 22:59] LABS: Urine Red Blood Cell 0-2 /HPF (0-2); Urine Squamous Cell 0-2 /LPF (Few); Urine White Cell 0-2 /HPF (0-5)
--- NOTE | 2024-12-14 00:59 | ED.GENMED ---
History of Present Illness
General
Chief Complaint: Skin Problem
Source: patient
Exam Limitations: none
Time Seen by Provider: 12/14/24 00:25
Nursing documentation reviewed up to this point in time: agreed with
History of Present Illness
History of Present Illness:
59-year-old male diabetic TAVR obesity presents with redness of the left great toe thought was fungal he tried to rub at the with his fingernail, she had no fever no drainage he is concerned that he could be developing a fungal infection or
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
Past History
Past History
ED Past Medical History: Arrthythmia (Atrial fib), GERD, HTN, Hypercholesterolemia, NIDDM, Psychiatric (anxiety,) and Other (Chronic back problems, HIV, kidney stones, hepatitis B, PNA,)
ED Past Surgical History: None
Social History
Tobacco: Non-smoker
Alcohol: Occasional
Drug: None
Personal: Single
Living: with roommate
Employment: Not employed
Family History
Family History: Other (Coronary artery disease, CVA, cancer)
Review of Systems
Review of Systems
All Other Systems: Not applicable
Constitutional: Denies fever or fatigue
Skin: Reports other (Redness left great toe)
Phy Exam
Physical Exam
Physical Exam:
Physical Exam
General: no apparent distress, not acutely ill
Neck:
Heart: s1/s2 regular rate and rhythm, no murmur. equal radial pulses.
Lungs: no acute respiratory distress. clear bilaterally
Neuro: alert and oriented. no focal neurological deficits
Skin: no rash
Psychiatric: well kept. interactive and cooperative
Extremities: Left great toe minimal erythema lateral and medial cuticle no paronychia no overt cellulitis no wound
Course
Orders/Labs/Results
Orders:
Orders
12/13/24 22:05
Complete Blood Count/With Diff Urgent
Comprehensive Metabolic Panel Urgent
12/13/24 22:12
Urinalysis Reflex To Culture Urgent
Date Specimen was Collected: 12/13/24
Time Specimen was Collected: 22:07
Urine Microscopic Reflex Cult Urgent
Abnormal Lab Results
12/13/24 12/13/24
22:05 22:12
Sodium 132 L mmol/L
(135-145)
BUN 22 H mg/dl
(9-20)
Glucose 138 H mg/dl
(70-99)
Urine Bacteria (Reflex) Few A
(Negative)
Urine Albumin (Reflex) 2+ A
(Neg - Trace)
12/13/24 22:05
12/13/24 22:05
Vital Signs
Initial and Last Documented VS:
Initial Vital Signs
Temp Pulse Resp BP Pulse Ox
98.3 F 77 18 149/77 97
12/13/24 21:45 12/13/24 21:45 12/13/24 21:45 12/13/24 21:45 12/13/24 21:45
Last Documented Vital Signs
Temp Pulse Resp BP Pulse Ox
98.3 F 77 18 149/77 97
12/13/24 21:45 12/13/24 21:45 12/13/24 21:45 12/13/24 21:45 12/13/24 21:45
MDM/Problems Addressed
Differential Diagnosis Includes:
Fungal bacterial and a diabetic
MDM/Problems Addressed:
Toe red
Chronic conditions affecting care: DM
Acute Exacerbation and/or Progression of Chronic Illness: DM
*Pulse Oximetry
SaO2: 97
Oxygen Mode of Delivery: Room air
Patient hypoxic: no
*Critical Care Note
Total Time (30-74mins, 75-104mins- exclusive of procedures): Not Applicable
Update Note
Update Note:
Update symptoms are minimal he is diabetic appears to be fairly well-controlled we will start with antifungal topically and some antibiotics orally
ED Attending Note
-
Portions of this chart may have been created with voice recognition software.� Occasional wrong word or��sound alike� substitutions may have occurred due to the inherent limitations of voice recognition software.
Discharge Plan
Departure
Patient Disposition: Home (Routine Discharge)
Date of Disposition: 12/14/24
Time of Disposition: 01:01
Patient with high blood pressure during this ER visit?: No
Condition: Good
Discharge Problem:
Tinea pedis, Diabetic foot
Instructions: Cellulitis (Skin Infection), Adult (DC)
Prescriptions:
New
amoxicillin-pot clavulanate 875-125 mg tablet
1 tab PO BID Qty: 14 0RF
clotrimazole [Lotrimin AF (clotrimazole)] 1 % cream
1 applic topical BID Qty: 15 0RF
No Action
dexlansoprazole [Dexilant] 60 MG capsule,biphase delayed releas
60 mg PO PRN PRN (Reason: heartburn)
insulin glargine [Lantus Solostar U-100 Insulin] 100 unit/mL (3 mL) Insulin Pen
54 unit SC DAILY
Patient Comments:
Pt states 8-10 units this morning.
lidocaine [Lidocaine Pain Relief] 4 % Adhesive Patch,Medicated
1 patch TOPICAL BID PRN (Reason: pain)
acetaminophen [Tylenol Arthritis Pain] 650 mg Tablet Extended Release
1,300 mg PO Q8H PRN (Reason: pain)
Probiotic
1 tab PO DAILYPRN PRN (Reason: stomach upset)
metoprolol succinate 100 mg Tablet Extended Release 24 Hr
100 mg PO BID Qty: 0 0RF
insulin aspart U-100 [Novolog FlexPen U-100 Insulin] 300 UNITS/3 ML insulin pen
22 unit SC AC Qty: 0 0RF
amlodipine-olmesartan 5-40 mg Tablet
1 tab PO DAILY Qty: 0 0RF
Eliquis 5 mg Tablet
5 mg PO BID Qty: 0 0RF
Delstrigo 100-300-300 mg Tablet
1 tab PO DAILY Qty: 0 0RF
Nexlizet 180-10 mg Tablet
1 tab PO DAILY Qty: 0 0RF
Mounjaro 12.5 mg/0.5 mL Pen Injector
12.5 mg SC QWEEK Qty: 0 0RF
Rx Instructions:
Takes every Monday
furosemide 40 mg Tablet
40 mg PO DAILY Qty: 30 0RF
oxycodone-acetaminophen [Percocet] 5-325 mg tablet
1 tab PO Q8H PRN (Reason: Pain) Qty: 9 0RF
Referrals:
Rudi Chin DO [Family Provider, Internal Medicine] - Next open appointment
Activity Restrictions/Additional Instructions:
Follow-up with your family doctor and real estate listing consultant
Interventions
Interventions:
*Risk Screen - Suicide Last Done: 12/13/24 21:45
*General Assessment Last Done: 12/13/24 21:45
*Neglect/Abuse Screening Last Done: 12/13/24 21:45
Discharge Date and Time
Print Language: MALTESE
[2024-12-14] MEDS: AUGMENTIN 875 MG/125 MG 1 TABLET PO (01:50)
== END 2024-12-14 01:50 | disposition home or self-care (01) ==
LOC: EMR 21:41
PROVIDERS: EMERGENCY PHYSICIAN Emergency Medicine; FAMILY PHYSICIAN Internal Medicine
DX: E11.9 Type 2 diabetes mellitus without complications (principal); B35.3 Tinea pedis; E66.9 Obesity, unspecified; E78.00 Pure hypercholesterolemia, unspecified; I10 Essential (primary) hypertension; I48.91 Unspecified atrial fibrillation; Z80.9 Family history of malignant neoplasm, unspecified; Z82.3 Family history of stroke; Z82.49 Family history of ischemic heart disease and other diseases of the circulatory system; Z87.01 Personal history of pneumonia (recurrent); Z87.442 Personal history of urinary calculi
CPT/HCPCS: 99283; 80053; 81003; 81015; 85025